=== PATIENT | male | born 1965 | race Caucasian/White ===

== ENCOUNTER 2016-12-29 20:24 | Inpatient (IN) ==
[2016-12-29 21:27] LABS: Basophils # 0.1 K/mcL (0.0-0.2); Basophils % 0.9 %; Eosinophils # 0.1 K/mcL (0.0-0.6); Eosinophils % 1.7 %; Hematocrit 38.8 % (37.5-50.1); Hemoglobin 13.4 g/dL (12.9-16.9); Immature Granulocytes % 0.4 % (0-4); Lymphocytes # 3.2 K/mcL (0.6-4.6); Lymphocytes % 40.2 %; Mean Corpuscular HGB Conc 34.5 g/dL (31.6-35.5); Mean Corpuscular Hemoglobin 31.7 pg (28.0-33.3); Mean Corpuscular Volume 91.7 fL (83.0-100.0); Mean Platelet Volume 9.5 fL (9.4-12.4); Monocytes # 0.9 K/mcL (0.0-1.3); Monocytes % 11.1 %; Neutrophils # 3.6 K/mcL (1.6-8.9); Platelet Count 328 K/mcL (140-400); Red Blood Count 4.23 M/mcL (4.19-5.50); Red Cell Distribution Width 12.1 % (11.5-14.5); Segmented Neutrophils % 45.7 %
[2016-12-29 21:37] LABS: BUN/Creatinine Ratio 12 (6-26); Blood Urea Nitrogen 13 mg/dL (8-26); Calcium 9.5 mg/dL (8.6-10.8); Carbon Dioxide 22 mEq/L (19-29); Chloride 106 mEq/L (98-109); Glucose 102 mg/dL (70-99); Osmolality,Calculated 290 (280-300); Potassium 3.6 mEq/L (3.5-4.5); Sodium 140 mEq/L (136-145); eGFR For African Americans > 60 (> 60); eGFR For Non-African Americans > 60 (> 60)
[2016-12-29 21:38] LABS: Acetaminophen < 1.0 mcg/mL (10-30); Ethanol < 10 mg/dL (0-10); Salicylate < 5.0 mg/dL (15-30)
--- NOTE | 2016-12-29 21:49 | Emergency Department Note ---
Disposition Clinical Impression: Suicidal ideation Disposition: Still a Patient Referrals: NO,PCP [Primary Care Provider] - Forms: ED Satisfaction Letter Psych HPI - General Chief Complaint: ED Psychiatric Symptoms Stated Complaint: si Time Seen by Provider: 12/29/16 20:55 Source: patient Nursing Notes Reviewed: Yes Vital Signs Reviewed: Yes - History of Present Illness HPI Narrative: Mr. Saxena, a 51yo male, presents from home via EMS with CC: suicidal ideation. Onset 2-3 weeks. He has several plans in mind. What prevented him from carrying it out was thoughts of his 21yo daughter. Patient has a history of 3 previous suicide attempts. Was previously admitted to and was told, if he had additional suicidal ideations, to present to the ED. Denies recent self harm to include ingestion. Daily medications include mertazipine and clonazepam. Has not been to his therapist in some time; reason he quit: he felt good enough he didn't think he needed to go any more. Habits: admits to remote THC use, denies other illicit substances. - Related Data Previous Rx's Medication Instructions Recorded ClonazePAM [Klonopin] 1 mg PO TID 30 Days 02/04/16 Omeprazole [PriLOSEC] 40 mg PO DAILY 30 Days 02/04/16 ClonazePAM [Klonopin] 1 mg PO TID PRN #0 tablet 07/15/16 Quetiapine Fumarate [SEROquel] 100 mg PO HS #30 tablet 07/22/16 Allergies Allergy/AdvReac Type Severity Reaction Status Date / Time Penicillins Allergy Anaphylaxis Verified 12/29/16 20:43 All systems ED: reviewed and negative except as stated. Constitutional: Denies: fever, chills Cardiovascular: Denies: chest pain, palpitations Respiratory: Denies: cough, dyspnea, wheezes Gastrointestinal: Denies: abdominal pain, nausea, vomiting, diarrhea, constipation Genitourinary: Denies: urgency, dysuria Musculoskeletal: Denies: back pain, neck pain Psychiatric: Reports: depression, suicidal thoughts. Denies: homicidal thoughts Past Medical History - Past Medical History Medical history: Reports: arthritis, GERD, seizures Psychiatric history: Reports: anxiety, depression, PTSD, prior suicide attempt, previous psychiatric hospitalization, other - Social History Smoking Status: Former smoker Smokeless Tobacco Status: No Alcohol use: Reports: none Drug use: Reports: cocaine, opiates, marijuana, other Physical Exam General: Patient is alert, oriented, and in no acute distress. HEENT: No facial asymmetry. Head is normocephalic and atraumatic. PERRLA. Trachea midline. Cardiovascular: Heart regular rate and rhythm without clicks, rubs, gallops, or murmurs. No JVD. Respiratory: Symmetric chest rise with good respiratory effort. Bilateral breath sounds are clear without wheezing, crackles, or rhonchi. Abdomen: Bowel sounds present normoactive x-4 quadrants. Abdomen is soft, nondistended, and nontender. No organomegaly noted. Musculoskeletal: Spontaneously moving all extremities. Neuro: Cranial nerves II through XII grossly intact. Psych: Patient's affect is flat. - General Limitations: no limitations General appearance: alert, in no apparent distress Course Course Narrative: Will medically clear for 1A evaluation. 22:36 Patient's lab work is remarkable only for positive urine THC. Physical exam is unremarkable. He is medically cleared at this time. Will consult 1A. Vital Signs Temperature 98.7 F 12/29/16 20:44 Pulse Rate 75 12/29/16 20:44 Respiratory Rate 16 12/29/16 20:44 Blood Pressure 148/90 12/29/16 20:44 O2 Sat by Pulse Oximetry 97 12/29/16 20:44 Temperature 98.7 F 12/29/16 20:44 Pulse Rate 75 12/29/16 20:44 Respiratory Rate 16 12/29/16 20:44 Blood Pressure 148/90 12/29/16 20:44 O2 Sat by Pulse Oximetry 97 12/29/16 20:44 Oxygen Delivery Oxygen Delivery Room Air Psych - Lab Data Result diagrams: 12/29/16 21:18 12/29/16 21:18 Lab Results 12/29/16 12/29/16 12/29/16 Range/Units 21:18 21:18 22:20 WBC 7.8 (4.3-11.1) K/mcL RBC 4.23 (4.19-5.50) M/mcL Hgb 13.4 (12.9-16.9) g/dL Hct 38.8 (37.5-50.1) % MCV 91.7 (83.0-100.0) fL MCH 31.7 (28.0-33.3) pg MCHC 34.5 (31.6-35.5) g/dL RDW 12.1 (11.5-14.5) % Plt Count 328 (140-400) K/mcL MPV 9.5 (9.4-12.4) fL Immature Gran % 0.4 (0-4) % Seg Neutrophils % 45.7 % Lymphocytes % 40.2 % Monocytes % 11.1 % Eosinophils % 1.7 % Basophils % 0.9 % Neutrophils # 3.6 (1.6-8.9) K/mcL Lymphocytes # 3.2 (0.6-4.6) K/mcL Monocytes # 0.9 (0.0-1.3) K/mcL Eosinophils # 0.1 (0.0-0.6) K/mcL Basophils # 0.1 (0.0-0.2) K/mcL Sodium 140 (136-145) mEq/L Potassium 3.6 (3.5-4.5) mEq/L Chloride 106 (98-109) mEq/L Carbon Dioxide 22 (19-29) mEq/L BUN 13 (8-26) mg/dL Creatinine 1.09 (0.72-1.25) mg/dL Est GFR ( Amer) > 60 (> 60) Est GFR (Non-Af Amer) > 60 (> 60) BUN/Creatinine Ratio 12 (6-26) Glucose 102 H (70-99) mg/dL Calculated Osmolality 290 (280-300) Calcium 9.5 (8.6-10.8) mg/dL Urine Color Yellow (Yellow) Urine Clarity Clear (Clear) Urine pH 6.0 (5.0-8.0) pH Units Ur Specific [place] 1.025 (1.010-1.025) Urine Protein Negative (Neg-Trace) mg/dL Urine Glucose (UA) Normal (Normal) mg/dL Urine Ketones Negative (Negative) mg/dL Urine Blood Negative (Negative) Urine Nitrite Negative (Negative) Urine Bilirubin Negative (Negative) Urine Urobilinogen Normal (Normal) mg/dL Ur Leukocyte Esterase Negative (Negative) Salicylates < 5.0 L (15-30) mg/dL Urine Opiates Screen (Eftout=582) ng/mL Acetaminophen < 1.0 L (10-30) mcg/mL Ur Barbiturates Screen (Pzdyml=987) ng/mL Ur Phencyclidine Scrn (Cutoff=25) ng/mL Ur Amphetamines Screen (Mpolqi=7042) ng/mL U Benzodiazepines Scrn (Oebjox=806) ng/mL Urine Cocaine Screen (Cutoff= 300) ng/mL U Marijuana (THC) Screen (Cutoff = 50) ng/mL Ethyl Alcohol < 10 (0-10) mg/dL 12/29/16 Range/Units 22:20 WBC (4.3-11.1) K/mcL RBC (4.19-5.50) M/mcL Hgb (12.9-16.9) g/dL Hct (37.5-50.1) % MCV (83.0-100.0) fL MCH (28.0-33.3) pg MCHC (31.6-35.5) g/dL RDW (11.5-14.5) % Plt Count (140-400) K/mcL MPV (9.4-12.4) fL Immature Gran % (0-4) % Seg Neutrophils % % Lymphocytes % % Monocytes % % Eosinophils % % Basophils % % Neutrophils # (1.6-8.9) K/mcL Lymphocytes # (0.6-4.6) K/mcL Monocytes # (0.0-1.3) K/mcL Eosinophils # (0.0-0.6) K/mcL Basophils # (0.0-0.2) K/mcL Sodium (136-145) mEq/L Potassium (3.5-4.5) mEq/L Chloride (98-109) mEq/L Carbon Dioxide (19-29) mEq/L BUN (8-26) mg/dL Creatinine (0.72-1.25) mg/dL Est GFR ( Amer) (> 60) Est GFR (Non-Af Amer) (> 60) BUN/Creatinine Ratio (6-26) Glucose (70-99) mg/dL Calculated Osmolality (280-300) Calcium (8.6-10.8) mg/dL Urine Color (Yellow) Urine Clarity (Clear) Urine pH (5.0-8.0) pH Units Ur Specific [place] (1.010-1.025) Urine Protein (Neg-Trace) mg/dL Urine Glucose (UA) (Normal) mg/dL Urine Ketones (Negative) mg/dL Urine Blood (Negative) Urine Nitrite (Negative) Urine Bilirubin (Negative) Urine Urobilinogen (Normal) mg/dL Ur Leukocyte Esterase (Negative) Salicylates (15-30) mg/dL Urine Opiates Screen Negative (Poroia=994) ng/mL Acetaminophen (10-30) mcg/mL Ur Barbiturates Screen Negative (Czsglk=539) ng/mL Ur Phencyclidine Scrn Negative (Cutoff=25) ng/mL Ur Amphetamines Screen Negative (Remofe=5528) ng/mL U Benzodiazepines Scrn Negative (Elebaz=671) ng/mL Urine Cocaine Screen Negative (Cutoff= 300) ng/mL U Marijuana (THC) Screen Positive H (Cutoff = 50) ng/mL Ethyl Alcohol (0-10) mg/dL - EKG Data EKG attestation: Yes I reviewed and interpreted this EKG. EKG results narrative: EKG dated 29 Dec 2016 at 22:33 interpreted as normal sinus rhythm with rate of 64. Normal intervals. Normal axis. Non-specific STT changes. No previous EKG for comparison. Psychiatric Medical Clearance - Medical Clearance Checklist Medical History: No Social History Section defined Current Vitals: Last Vital Signs Temp 98.7 F 12/29/16 20:44 Pulse 75 12/29/16 20:44 Resp 16 12/29/16 20:44 BP 148/90 12/29/16 20:44 Pulse Ox 97 12/29/16 20:44 Psychiatric Lab Panel: Drug Levels and Toxicity 12/29/16 12/29/16 21:18 22:20 Urine Opiates Screen Negative Acetaminophen < 1.0 L Ur Barbiturates Screen Negative Ur Phencyclidine Scrn Negative Ur Amphetamines Screen Negative U Benzodiazepines Scrn Negative Urine Cocaine Screen Negative U Marijuana (THC) Screen Positive H Ethyl Alcohol < 10 Abnormal Labs: Abnormal lab results Glucose 102 mg/dL (70-99) H 12/29/16 21:18 Salicylates < 5.0 mg/dL (15-30) L 12/29/16 21:18 Acetaminophen < 1.0 mcg/mL (10-30) L 12/29/16 21:18 U Marijuana (THC) Screen Positive ng/mL (Cutoff = 50) H 12/29/16 22:20 Statement of Medical Clearance: I have evaluated the patient, reviewed diagnostic information, and certify that the patient's medical condition is sufficiently stable that transfer to the psychiatric unit does not pose a significant risk of deterioration.
--- NOTE | 2016-12-29 22:20 | Emergency Department Note ---
Disposition Clinical Impression: Suicidal ideation Disposition: Admitted As Inpatient Condition: Good Referrals: NO,PCP [Primary Care Provider] - Forms: ED Satisfaction Letter General Adult HPI - General Chief complaint: ED Psychiatric Symptoms Stated complaint: si Time Seen by Provider: 12/29/16 20:55 Source: patient Limitations: no limitations - History of Present Illness Pain Scale: 0 - Related Data Previous Rx's Medication Instructions Recorded ClonazePAM [Klonopin] 1 mg PO TID 30 Days 02/04/16 Omeprazole [PriLOSEC] 40 mg PO DAILY 30 Days 02/04/16 ClonazePAM [Klonopin] 1 mg PO TID PRN #0 tablet 07/15/16 Quetiapine Fumarate [SEROquel] 100 mg PO HS #30 tablet 07/22/16 Allergies Allergy/AdvReac Type Severity Reaction Status Date / Time Penicillins Allergy Anaphylaxis Verified 12/29/16 20:43 Constitutional: Denies: fever, chills Cardiovascular: Denies: chest pain, palpitations Respiratory: Denies: cough, dyspnea, wheezes Gastrointestinal: Denies: abdominal pain, nausea, vomiting, diarrhea, constipation Genitourinary: Denies: urgency, dysuria Musculoskeletal: Denies: back pain, neck pain Psychiatric: Reports: depression, suicidal thoughts. Denies: homicidal thoughts Past Medical History - Past Medical History Medical history: Reports: arthritis, GERD, seizures Psychiatric history: Reports: anxiety, depression, PTSD, prior suicide attempt, previous psychiatric hospitalization, other - Social History Smoking Status: Former smoker Smokeless Tobacco Status: No Alcohol use: Reports: none Drug use: Reports: cocaine, opiates, marijuana, other Physical Exam - General Limitations: no limitations General appearance: alert, in no apparent distress Course - Reevaluation(s) Reevaluation #1: I saw the patient with the resident, Dr. Vidales. Patient presents with depression and suicidal ideations. Patient registers no medical complaints at this time. Physical examination is unremarkable. We will do the lab screening examination as well. If those are negative he will be medically cleared and we will consult psychiatry for evaluation. Patient is calm and cooperative at this time. Time: 22:19 Vital Signs Temperature 98.7 F 12/29/16 20:44 Pulse Rate 75 12/29/16 20:44 Respiratory Rate 16 12/29/16 20:44 Blood Pressure 148/90 12/29/16 20:44 O2 Sat by Pulse Oximetry 97 12/29/16 20:44 Temperature 98.7 F 12/29/16 20:44 Pulse Rate 75 12/29/16 20:44 Respiratory Rate 16 12/29/16 20:44 Blood Pressure 148/90 12/29/16 20:44 O2 Sat by Pulse Oximetry 97 12/29/16 20:44 Oxygen Delivery Oxygen Delivery Room Air Medical Decision Making - Lab Data Result diagrams: 12/29/16 21:18 12/29/16 21:18 Lab Results 12/29/16 12/29/16 12/29/16 Range/Units 21:18 21:18 22:20 WBC 7.8 (4.3-11.1) K/mcL RBC 4.23 (4.19-5.50) M/mcL Hgb 13.4 (12.9-16.9) g/dL Hct 38.8 (37.5-50.1) % MCV 91.7 (83.0-100.0) fL MCH 31.7 (28.0-33.3) pg MCHC 34.5 (31.6-35.5) g/dL RDW 12.1 (11.5-14.5) % Plt Count 328 (140-400) K/mcL MPV 9.5 (9.4-12.4) fL Immature Gran % 0.4 (0-4) % Seg Neutrophils % 45.7 % Lymphocytes % 40.2 % Monocytes % 11.1 % Eosinophils % 1.7 % Basophils % 0.9 % Neutrophils # 3.6 (1.6-8.9) K/mcL Lymphocytes # 3.2 (0.6-4.6) K/mcL Monocytes # 0.9 (0.0-1.3) K/mcL Eosinophils # 0.1 (0.0-0.6) K/mcL Basophils # 0.1 (0.0-0.2) K/mcL Sodium 140 (136-145) mEq/L Potassium 3.6 (3.5-4.5) mEq/L Chloride 106 (98-109) mEq/L Carbon Dioxide 22 (19-29) mEq/L BUN 13 (8-26) mg/dL Creatinine 1.09 (0.72-1.25) mg/dL Est GFR ( Amer) > 60 (> 60) Est GFR (Non-Af Amer) > 60 (> 60) BUN/Creatinine Ratio 12 (6-26) Glucose 102 H (70-99) mg/dL Calculated Osmolality 290 (280-300) Calcium 9.5 (8.6-10.8) mg/dL Urine Color Yellow (Yellow) Urine Clarity Clear (Clear) Urine pH 6.0 (5.0-8.0) pH Units Ur Specific [place] 1.025 (1.010-1.025) Urine Protein Negative (Neg-Trace) mg/dL Urine Glucose (UA) Normal (Normal) mg/dL Urine Ketones Negative (Negative) mg/dL Urine Blood Negative (Negative) Urine Nitrite Negative (Negative) Urine Bilirubin Negative (Negative) Urine Urobilinogen Normal (Normal) mg/dL Ur Leukocyte Esterase Negative (Negative) Salicylates < 5.0 L (15-30) mg/dL Urine Opiates Screen (Grgzet=680) ng/mL Acetaminophen < 1.0 L (10-30) mcg/mL Ur Barbiturates Screen (Vdhwcw=787) ng/mL Ur Phencyclidine Scrn (Cutoff=25) ng/mL Ur Amphetamines Screen (Rmsjez=7996) ng/mL U Benzodiazepines Scrn (Vvwjxa=841) ng/mL Urine Cocaine Screen (Cutoff= 300) ng/mL U Marijuana (THC) Screen (Cutoff = 50) ng/mL Ethyl Alcohol < 10 (0-10) mg/dL 12/29/16 Range/Units 22:20 WBC (4.3-11.1) K/mcL RBC (4.19-5.50) M/mcL Hgb (12.9-16.9) g/dL Hct (37.5-50.1) % MCV (83.0-100.0) fL MCH (28.0-33.3) pg MCHC (31.6-35.5) g/dL RDW (11.5-14.5) % Plt Count (140-400) K/mcL MPV (9.4-12.4) fL Immature Gran % (0-4) % Seg Neutrophils % % Lymphocytes % % Monocytes % % Eosinophils % % Basophils % % Neutrophils # (1.6-8.9) K/mcL Lymphocytes # (0.6-4.6) K/mcL Monocytes # (0.0-1.3) K/mcL Eosinophils # (0.0-0.6) K/mcL Basophils # (0.0-0.2) K/mcL Sodium (136-145) mEq/L Potassium (3.5-4.5) mEq/L Chloride (98-109) mEq/L Carbon Dioxide (19-29) mEq/L BUN (8-26) mg/dL Creatinine (0.72-1.25) mg/dL Est GFR ( Amer) (> 60) Est GFR (Non-Af Amer) (> 60) BUN/Creatinine Ratio (6-26) Glucose (70-99) mg/dL Calculated Osmolality (280-300) Calcium (8.6-10.8) mg/dL Urine Color (Yellow) Urine Clarity (Clear) Urine pH (5.0-8.0) pH Units Ur Specific [place] (1.010-1.025) Urine Protein (Neg-Trace) mg/dL Urine Glucose (UA) (Normal) mg/dL Urine Ketones (Negative) mg/dL Urine Blood (Negative) Urine Nitrite (Negative) Urine Bilirubin (Negative) Urine Urobilinogen (Normal) mg/dL Ur Leukocyte Esterase (Negative) Salicylates (15-30) mg/dL Urine Opiates Screen Negative (Xsyadp=600) ng/mL Acetaminophen (10-30) mcg/mL Ur Barbiturates Screen Negative (Jmsvds=944) ng/mL Ur Phencyclidine Scrn Negative (Cutoff=25) ng/mL Ur Amphetamines Screen Negative (Sifudb=4214) ng/mL U Benzodiazepines Scrn Negative (Tshpqw=993) ng/mL Urine Cocaine Screen Negative (Cutoff= 300) ng/mL U Marijuana (THC) Screen Positive H (Cutoff = 50) ng/mL Ethyl Alcohol (0-10) mg/dL Attestation Statement - Attestation Attestation: I, Dr. Barbour, examined this patient [id number] and my medical decision- making was reviewed with Dr. Nesbitt, Resident Physician. I agree with the documented findings, disposition and treatment plan as described except to the extent set forth below. Please see my progress notes for details. Dr Bosch note: Pt seen by 1 A psych nurse and felt appropriate for psych admission; medically stable @ time of my evaluation and left the ER for 1 a floor; Admitted to Dr Field; Please see prior charting by resident Dr Nesbitt and attending Dr. Barbour;
[2016-12-29 22:29] LABS: Bilirubin,Urine Negative (Negative); Blood,Urine Negative (Negative); Clarity,Urine Clear (Clear); Color,Urine Yellow (Yellow); Glucose,Urine (UA) Normal (Normal); Ketones,Urine Negative (Negative); Leukocyte Esterase,Urine Negative (Negative); Nitrite,Urine Negative (Negative); Protein,Urine Negative (Neg-Trace); Specific Gravity,Urine 1.025 (1.010-1.025); Urobilinogen,Urine Normal (Normal)
[2016-12-29 22:35] LABS: Amphetamine Screen,Urine Negative ng/mL (Cutoff=1000); Barbiturate Screen,Urine Negative ng/mL (Cutoff=200); Benzodiazepines Screen,Urine Negative ng/mL (Cutoff=200); Cannabinoid Screen,Urine Positive ng/mL (Cutoff = 50); Cocaine Screen,Urine Negative ng/mL (Cutoff= 300); Opiate Screen,Urine Negative ng/mL (Cutoff=300); Phencyclidine Screen,Urine Negative ng/mL (Cutoff=25)
--- NOTE | 2016-12-30 01:15 | Emergency Department Note ---
Disposition Clinical Impression: Suicidal ideation Disposition: Admitted As Inpatient Condition: Good Time of Disposition: 04:31 Psych HPI - General Chief Complaint: ED Psychiatric Symptoms Stated Complaint: si Time Seen by Provider: 12/29/16 20:55 Source: patient Nursing Notes Reviewed: Yes Vital Signs Reviewed: Yes - History of Present Illness HPI Narrative: Patient was a signout from the day team, Dr. Nesbitt and Dr. Barbour. Please see their notes for further detail. Patient is a 51-year-old male who presented with suicidal ideation with several plans. He has a history of previous suicide attempts and has been admitted to the psychiatry here in the past. Patient was medically cleared by day team. On my reassessment, patient continued to have no complaints of chest pain, shortness breath, nausea, vomiting, fevers, abdominal pain, change in bowel or bladder habits. No ingestion or self-harm. - Related Data Home Medications Medication Instructions Recorded Confirmed Mirtazapine [Remeron] 15 mg PO HS 12/30/16 12/30/16 Previous Rx's Medication Instructions Recorded ClonazePAM [Klonopin] 1 mg PO TID 30 Days 02/04/16 Omeprazole [PriLOSEC] 40 mg PO DAILY 30 Days 02/04/16 ClonazePAM [Klonopin] 1 mg PO TID PRN #0 tablet 07/15/16 Quetiapine Fumarate [SEROquel] 100 mg PO HS #30 tablet 07/22/16 Allergies Allergy/AdvReac Type Severity Reaction Status Date / Time Penicillins Allergy Anaphylaxis Verified 12/29/16 20:43 All systems ED: reviewed and negative except as stated. Constitutional: Denies: fever, chills Cardiovascular: Denies: chest pain, palpitations Respiratory: Denies: cough, dyspnea, wheezes Gastrointestinal: Denies: abdominal pain, nausea, vomiting, diarrhea, constipation Genitourinary: Denies: urgency, dysuria Musculoskeletal: Denies: back pain, neck pain Psychiatric: Reports: depression, suicidal thoughts. Denies: homicidal thoughts Past Medical History - Past Medical History Attestation: Yes The following information was validated with the patient. Medical history: Reports: arthritis, GERD, seizures Psychiatric history: Reports: anxiety, depression, PTSD, prior suicide attempt, previous psychiatric hospitalization, other - Social History Smoking Status: Former smoker Smokeless Tobacco Status: No Alcohol use: Reports: none Drug use: Reports: cocaine, opiates, marijuana, other Physical Exam - General Limitations: no limitations General appearance: alert, in no apparent distress - Head Head exam: atraumatic, normocephalic, normal inspection - Eye Eye exam: Present: normal appearance, PERRL, EOMI - ENT ENT exam: normal exam, normal oropharynx, mucous membranes moist - Neck Neck exam: Present: normal inspection, full ROM, trachea midline - Chest Chest inspection: Present: normal inspection, symmetric chest wall rise - Respiratory Respiratory exam: Present: normal lung sounds bilaterally - Cardiovascular Cardiovascular exam: Present: regular rate, normal rhythm, normal heart sounds - Abdominal Exam Abdominal exam: Present: soft, Non-Tender. Absent: tenderness, distention, guarding, rebound, rigidity - Extremities Exam Extremities exam: Present: normal inspection, full ROM. Absent: tenderness, pedal edema - Neurological Exam Neurological exam: Present: alert, oriented X3 - Psychiatric Psychiatric exam: Present: normal affect, depressed - Skin Skin exam: Present: warm, dry, intact, normal color Course Course Narrative: Vitals within normal limits on my exam. Patient was seen and evaluated by 1A who recommended admission to for further care. Patient stable prior to admission. Vital Signs Temperature 98.7 F 12/29/16 20:44 Pulse Rate 75 12/29/16 20:44 Respiratory Rate 16 12/29/16 20:44 Blood Pressure 148/90 12/29/16 20:44 O2 Sat by Pulse Oximetry 97 12/29/16 20:44 Temperature 98.1 F 12/30/16 02:05 Pulse Rate 67 12/30/16 02:05 Respiratory Rate 16 12/30/16 02:05 Blood Pressure 147/90 12/30/16 02:05 O2 Sat by Pulse Oximetry 97 12/29/16 20:44 Oxygen Delivery Oxygen Delivery Room Air Psych - MDM Narrative Medical decision making narrative: Vitals within normal limits on my exam. Patient was seen and evaluated by 1A who recommended admission to for further care. Patient stable prior to admission. - Lab Data Result diagrams: 12/29/16 21:18 12/29/16 21:18 Lab Results 12/29/16 12/29/16 12/29/16 Range/Units 21:18 21:18 22:20 WBC 7.8 (4.3-11.1) K/mcL RBC 4.23 (4.19-5.50) M/mcL Hgb 13.4 (12.9-16.9) g/dL Hct 38.8 (37.5-50.1) % MCV 91.7 (83.0-100.0) fL MCH 31.7 (28.0-33.3) pg MCHC 34.5 (31.6-35.5) g/dL RDW 12.1 (11.5-14.5) % Plt Count 328 (140-400) K/mcL MPV 9.5 (9.4-12.4) fL Immature Gran % 0.4 (0-4) % Seg Neutrophils % 45.7 % Lymphocytes % 40.2 % Monocytes % 11.1 % Eosinophils % 1.7 % Basophils % 0.9 % Neutrophils # 3.6 (1.6-8.9) K/mcL Lymphocytes # 3.2 (0.6-4.6) K/mcL Monocytes # 0.9 (0.0-1.3) K/mcL Eosinophils # 0.1 (0.0-0.6) K/mcL Basophils # 0.1 (0.0-0.2) K/mcL Sodium 140 (136-145) mEq/L Potassium 3.6 (3.5-4.5) mEq/L Chloride 106 (98-109) mEq/L Carbon Dioxide 22 (19-29) mEq/L BUN 13 (8-26) mg/dL Creatinine 1.09 (0.72-1.25) mg/dL Est GFR ( Amer) > 60 (> 60) Est GFR (Non-Af Amer) > 60 (> 60) BUN/Creatinine Ratio 12 (6-26) Glucose 102 H (70-99) mg/dL Calculated Osmolality 290 (280-300) Calcium 9.5 (8.6-10.8) mg/dL Urine Color Yellow (Yellow) Urine Clarity Clear (Clear) Urine pH 6.0 (5.0-8.0) pH Units Ur Specific [place] 1.025 (1.010-1.025) Urine Protein Negative (Neg-Trace) mg/dL Urine Glucose (UA) Normal (Normal) mg/dL Urine Ketones Negative (Negative) mg/dL Urine Blood Negative (Negative) Urine Nitrite Negative (Negative) Urine Bilirubin Negative (Negative) Urine Urobilinogen Normal (Normal) mg/dL Ur Leukocyte Esterase Negative (Negative) Salicylates < 5.0 L (15-30) mg/dL Urine Opiates Screen (Pzqbff=267) ng/mL Acetaminophen < 1.0 L (10-30) mcg/mL Ur Barbiturates Screen (Xjuzng=042) ng/mL Ur Phencyclidine Scrn (Cutoff=25) ng/mL Ur Amphetamines Screen (Mixuob=8540) ng/mL U Benzodiazepines Scrn (Wuswph=917) ng/mL Urine Cocaine Screen (Cutoff= 300) ng/mL U Marijuana (THC) Screen (Cutoff = 50) ng/mL Ethyl Alcohol < 10 (0-10) mg/dL 12/29/16 Range/Units 22:20 WBC (4.3-11.1) K/mcL RBC (4.19-5.50) M/mcL Hgb (12.9-16.9) g/dL Hct (37.5-50.1) % MCV (83.0-100.0) fL MCH (28.0-33.3) pg MCHC (31.6-35.5) g/dL RDW (11.5-14.5) % Plt Count (140-400) K/mcL MPV (9.4-12.4) fL Immature Gran % (0-4) % Seg Neutrophils % % Lymphocytes % % Monocytes % % Eosinophils % % Basophils % % Neutrophils # (1.6-8.9) K/mcL Lymphocytes # (0.6-4.6) K/mcL Monocytes # (0.0-1.3) K/mcL Eosinophils # (0.0-0.6) K/mcL Basophils # (0.0-0.2) K/mcL Sodium (136-145) mEq/L Potassium (3.5-4.5) mEq/L Chloride (98-109) mEq/L Carbon Dioxide (19-29) mEq/L BUN (8-26) mg/dL Creatinine (0.72-1.25) mg/dL Est GFR ( Amer) (> 60) Est GFR (Non-Af Amer) (> 60) BUN/Creatinine Ratio (6-26) Glucose (70-99) mg/dL Calculated Osmolality (280-300) Calcium (8.6-10.8) mg/dL Urine Color (Yellow) Urine Clarity (Clear) Urine pH (5.0-8.0) pH Units Ur Specific [place] (1.010-1.025) Urine Protein (Neg-Trace) mg/dL Urine Glucose (UA) (Normal) mg/dL Urine Ketones (Negative) mg/dL Urine Blood (Negative) Urine Nitrite (Negative) Urine Bilirubin (Negative) Urine Urobilinogen (Normal) mg/dL Ur Leukocyte Esterase (Negative) Salicylates (15-30) mg/dL Urine Opiates Screen Negative (Fxkbiv=919) ng/mL Acetaminophen (10-30) mcg/mL Ur Barbiturates Screen Negative (Dabusi=948) ng/mL Ur Phencyclidine Scrn Negative (Cutoff=25) ng/mL Ur Amphetamines Screen Negative (Uirxra=1947) ng/mL U Benzodiazepines Scrn Negative (Jaqqyr=778) ng/mL Urine Cocaine Screen Negative (Cutoff= 300) ng/mL U Marijuana (THC) Screen Positive H (Cutoff = 50) ng/mL Ethyl Alcohol (0-10) mg/dL Psychiatric Medical Clearance - Medical Clearance Checklist Does the patient have a NEW psychiatric condition?: No Any abnormalities indicating possible medical illness?: No Any history of medical issues?: No Medical History: No Social History Section defined Any abnormal vital signs prior to transfer?: No Current Vitals: Last Vital Signs Temp 98.1 F 12/30/16 02:05 Pulse 67 12/30/16 02:05 Resp 16 12/30/16 02:05 BP 147/90 12/30/16 02:05 Pulse Ox 97 12/29/16 20:44 Is the patient intoxicated or cognitively impaired?: No Psychiatric Lab Panel: Drug Levels and Toxicity 12/29/16 12/29/16 21:18 22:20 Urine Opiates Screen Negative Acetaminophen < 1.0 L Ur Barbiturates Screen Negative Ur Phencyclidine Scrn Negative Ur Amphetamines Screen Negative U Benzodiazepines Scrn Negative Urine Cocaine Screen Negative U Marijuana (THC) Screen Positive H Ethyl Alcohol < 10 Any abnormalities on the physical exam?: No Any abnormal labs?: No Abnormal Labs: Abnormal lab results Glucose 102 mg/dL (70-99) H 12/29/16 21:18 Salicylates < 5.0 mg/dL (15-30) L 12/29/16 21:18 Acetaminophen < 1.0 mcg/mL (10-30) L 12/29/16 21:18 U Marijuana (THC) Screen Positive ng/mL (Cutoff = 50) H 12/29/16 22:20 Does the patient require durable medical equiptment?: No Is the patient ambulatory?: Yes Is the patient a fall risk?: No Has the patient been medically cleared?: Yes Any acute medical condition require Tx prior to transfer?: No Attestation Statement - Attestation Attestation: Dr. Bosch note: Patient seen in conjunction with resident Dr. Barrios; please see his chart for complete documentation. I spent [id number] time with the patient and I agree with the patient's treatment and disposition. Medically stable for psych eval / admission at the time of ER depature
[2016-12-30] MEDS ORDERED: hydrOXYzine pamoate 25 MG CAPSULE PO PRN (01:52)
[2016-12-30] MEDS ORDERED: Mag Hydrox/Al Hydrox/Simeth 30 ML UDC PO PRN (01:52)
[2016-12-30] MEDS ORDERED: Haloperidol Lactate 5 MG/ML VIAL IM PRN (01:52)
[2016-12-30] MEDS ORDERED: *HR* LORazepam 1 MG TABLET PO PRN (01:52)
[2016-12-30] MEDS ORDERED: Acetaminophen 325 MG TABLET PO PRN (01:52)
[2016-12-30] MEDS ORDERED: *HR* LORazepam 2 MG/ML VIAL IM PRN (01:52)
[2016-12-30] MEDS ORDERED: MOM Conc 10 ML UD.LIQ PO PRN (01:52)
[2016-12-30] MEDS: clonazePAM 1 MG TABLET PO PRN ×3 (02:09→21:05)
[2016-12-30] MEDS: Mirtazapine 15 MG TABLET PO SCH ×2 (02:09→21:06)
--- NOTE | 2016-12-30 14:31 | Psychiatry History & Physical ---
Date of Encounter: 12/30/16 Time of Encounter: 13:50 History of Present Illness Patient Stated Chief Complaint: "Still feelin' suicidal." Medicare Admission Attestation: For traditional Medicare patients the provided hospital inpatient services are reasonable and necessary and in the case of services not specified as inpatient -only under 42 CFR 419.22 (n), that they are appropriately provided as inpatient services in accordance 42 CFR 412.3. For Critical Access Hospital the patient may reasonably be expected to be discharged or transferred to a hospital within 96 hours after admission to the Critical Access Hospital. Admitted From: Emergency Dept Plans for Post Hospital Care: Home History of Present Illness: Mr. Saxena is a 51 year old male who was admitted from the emergency department after stating that he was suicidal. When I asked him how he was today he stated "probably about the same as I was when I came in; suicidal, depressed and hopeless about some life circumstances". I asked him if he had ever attempted suicide in the past and he told me no. Patient was here approximately 6 months ago on a similar admission. He told me that he was not taking his Remeron consistently and taking it as a PRN basis when he needed sleep as opposed to routinely for treating his depression. He also states that is taking Klonopin 1 mg 2 to 3 times a day for his anxiety, which is been taken for the past year or more. He states the Klonopin keeps his anxiety down keeps him from killing himself. He reports that he feels hopeless and helpless about life, as low-energy, does not like to do things he used to like to do, feels tired all the time, has a decreased appetite. He denies any issues with gambling or impulsivity, he denies any auditory or visual hallucinations, paranoia or mind reading. He denies homicidal ideation. He tells me that he felt safe on the unit last night and finally fell asleep about 2 or 3 o'clock in the morning after he was admitted. He hasn't slept well for days. He states that he has no plans to hurt himself on the unit. When I asked him what his stresses are in life that are causing him to be depressed, he tells me that he recently found out from his estranged that "she is cheating on me". He states that she told him this past Thursday night that she was going to file for divorce, having found somebody new in her life. He currently lives in the basement of their house since August and he states that they have not lived as and for long time. He does not know that he wants to remain to her, but the fact that she has found another man is upsetting to him. He states his relationship with his and his daughter have been strained for a longtime secondary to them being [employer] and him not. He states that his daughter does not talk to him and has nothing to do with him. She is also getting in April and asked her maternal grandfather to give her away, not have her father. He found this devistating. When I review his history of medications he tells me "I ran the gamut on medications". He endorses having taken all the SSRIs with no good results, and states that the Remeron has worked best for him in the past when he takes it regularly, but again has not been. He states that he cannot go back to the house where he was living in the basement with his and daughter live, finding himself to be homeless. Past Med Surg Social Fam HX - Past Medical History Medical history: arthritis, GERD, seizures - Past Psychiatric History Psychiatric history: Reports: anxiety, depression, previous psychiatric hospitalization Past psychiatric history details: Has completed outpatient therapy at [facility]. Saw a therapist there named He Ty and said he was helpful, but he was hard to get in to see. Family psychiatric history: Yes Family Psychiatric History Details: Father abused substances Family History of Suicide: None - Social History Smoking Status: Former smoker Smokeless Tobacco Status: No Alcohol use: none Drug use: cocaine (hx), opiates (hx), marijuana (Sporadic), other (History of seizures when withdrawing from the Xanax he used to abuse. ) Additional substance use detail: He gets Klonopin 1 mg po bid-tid from Bill [facility] at [facility]. He does not feel he is addicted to them in that he can go days without it and doses not go through any withdraw. 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 Charges ranging form Auto Larceny to drug possessions. - Family History Mother Living Status: Hx Family Endocrine Disorder: Yes Father Living Status: Still Living Medications & Allergies ClonazePAM [Klonopin] 1 mg PO TID 30 Days 02/04/16 [Rx] Omeprazole [PriLOSEC] 40 mg PO DAILY 30 Days 02/04/16 [Rx] ClonazePAM [Klonopin] 1 mg PO TID PRN #0 tablet 07/15/16 [Rx] Quetiapine Fumarate [SEROquel] 100 mg PO HS #30 tablet 07/22/16 [Rx] Mirtazapine [Remeron] 15 mg PO HS 12/30/16 [History] Allergies Penicillins Allergy (Verified 12/29/16 20:43) Anaphylaxis Review of Systems Psychiatric: Reports: depression, anxiety, abnormal sleep pattern, suicidal ideation, change in appetite, anhedonia, change in libido, difficulty concentrating, hopelessness, irritability Mental Status Exam Patient orientation: Yes Person, Yes Time, Yes Place, Yes Circumstance Level of alertness: Alert, Follows commands Patient appearance: Appropriate, Well Groomed Behavior: cooperative Psychomotor activity: Normal Eye contact: Maintains Eye Contact Mood description: Depressed Affect description: flat Speech pattern: Normal rate, Normal rhythm, Normal tone, Appropriate Speech volume: Normal Thought process: Logical, Linear Thought content: Yes Suicidal ideation Attention span: Capable of Focused Attention Memory description: Grossly Intact Patient reliability: Questionable Historian Intelligence estimate: Average Judgment: Fair Insight: Partial Results - Vital Signs Vital signs: Temp Pulse Resp BP Pulse Ox 97.8 F 96 16 125/82 97 12/30/16 09:00 12/30/16 09:00 12/30/16 09:00 12/30/16 09:00 12/29/16 20:44 - Labs Labs: Laboratory Last Values WBC 7.8 K/mcL (4.3-11.1) 12/29/16 21:18 RBC 4.23 M/mcL (4.19-5.50) 12/29/16 21:18 Hgb 13.4 g/dL (12.9-16.9) 12/29/16 21:18 Hct 38.8 % (37.5-50.1) 12/29/16 21:18 MCV 91.7 fL (83.0-100.0) 12/29/16 21:18 MCH 31.7 pg (28.0-33.3) 12/29/16 21:18 MCHC 34.5 g/dL (31.6-35.5) 12/29/16 21:18 RDW 12.1 % (11.5-14.5) 12/29/16 21:18 Plt Count 328 K/mcL (140-400) 12/29/16 21:18 MPV 9.5 fL (9.4-12.4) 12/29/16 21:18 Immature Gran % 0.4 % (0-4) 12/29/16 21:18 Seg Neutrophils % 45.7 % 12/29/16 21:18 Lymphocytes % 40.2 % 12/29/16 21:18 Monocytes % 11.1 % 12/29/16 21:18 Eosinophils % 1.7 % 12/29/16 21:18 Basophils % 0.9 % 12/29/16 21:18 Neutrophils # 3.6 K/mcL (1.6-8.9) 12/29/16 21:18 Lymphocytes # 3.2 K/mcL (0.6-4.6) 12/29/16 21:18 Monocytes # 0.9 K/mcL (0.0-1.3) 12/29/16 21:18 Eosinophils # 0.1 K/mcL (0.0-0.6) 12/29/16 21:18 Basophils # 0.1 K/mcL (0.0-0.2) 12/29/16 21:18 Sodium 140 mEq/L (136-145) 12/29/16 21:18 Potassium 3.6 mEq/L (3.5-4.5) 12/29/16 21:18 Chloride 106 mEq/L (98-109) 12/29/16 21:18 Carbon Dioxide 22 mEq/L (19-29) 12/29/16 21:18 BUN 13 mg/dL (8-26) 12/29/16 21:18 Creatinine 1.09 mg/dL (0.72-1.25) 12/29/16 21:18 Est GFR ( Amer) > 60 (> 60) 12/29/16 21:18 Est GFR (Non-Af Amer) > 60 (> 60) 12/29/16 21:18 BUN/Creatinine Ratio 12 (6-26) 12/29/16 21:18 Glucose 102 mg/dL (70-99) H 12/29/16 21:18 Calculated Osmolality 290 (280-300) 12/29/16 21:18 Calcium 9.5 mg/dL (8.6-10.8) 12/29/16 21:18 Urine Color Yellow (Yellow) 12/29/16 22:20 Urine Clarity Clear (Clear) 12/29/16 22:20 Urine pH 6.0 pH Units (5.0-8.0) 12/29/16 22:20 Ur Specific [place] 1.025 (1.010-1.025) 12/29/16 22:20 Urine Protein Negative mg/dL (Neg-Trace) 12/29/16 22:20 Urine Glucose (UA) Normal mg/dL (Normal) 12/29/16 22:20 Urine Ketones Negative mg/dL (Negative) 12/29/16 22:20 Urine Blood Negative (Negative) 12/29/16 22:20 Urine Nitrite Negative (Negative) 12/29/16 22:20 Urine Bilirubin Negative (Negative) 12/29/16 22:20 Urine Urobilinogen Normal mg/dL (Normal) 12/29/16 22:20 Ur Leukocyte Esterase Negative (Negative) 12/29/16 22:20 Salicylates < 5.0 mg/dL (15-30) L 12/29/16 21:18 Urine Opiates Screen Negative ng/mL (Siygfr=604) 12/29/16 22:20 Acetaminophen < 1.0 mcg/mL (10-30) L 12/29/16 21:18 Ur Barbiturates Screen Negative ng/mL (Kfeaoe=034) 12/29/16 22:20 Ur Phencyclidine Scrn Negative ng/mL (Cutoff=25) 12/29/16 22:20 Ur Amphetamines Screen Negative ng/mL (Qyiocw=3653) 12/29/16 22:20 U Benzodiazepines Scrn Negative ng/mL (Edagoy=794) 12/29/16 22:20 Urine Cocaine Screen Negative ng/mL (Cutoff= 300) 12/29/16 22:20 U Marijuana (THC) Screen Positive ng/mL (Cutoff = 50) H 12/29/16 22:20 Ethyl Alcohol < 10 mg/dL (0-10) 12/29/16 21:18 Assessment and Plan (1) Major depressive disorder, recurrent episode, severe Current visit: No Status: Acute Plan: Admit inpatient for safety and stabilization, Close observation, Suicide Precautions per unit protocol, Encourage participation in unit milieu, Group Therapy, Monitor sleep, Monitor appetite Risks, benefits, side effects, alternatives discussed w/pt: Yes (Resume Remeron 15 mg po q HS) Patient agreeable to treatment: Yes Estimated Length of Stay (Days): 7 Qualifiers: Psychotic features: without psychotic features Qualified Code(s): F33.2 - Major depressive disorder, recurrent severe without psychotic features
--- NOTE | 2016-12-30 21:27 | Electrocardiograph Report ---
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
[2016-12-31] MEDS: clonazePAM 1 MG TABLET PO PRN ×3 (11:21→20:55)
--- NOTE | 2016-12-31 15:18 | Psychiatry Progress Note ---
Date of Encounter: 12/31/16 Time of Encounter: 14:20 Subjective Interval history: I invited the patient to have an interview and to check in for today to see how he was doing. I asked him how he was feeling. He told me "about the same". He denied any homicidal ideation today. He is still having passive suicidal thoughts, no plans. He tells me that he slept 8 to 9 hours last night. When asking about his medications and if taking the Remeron helped, he said 'yes, along with the Klonopin". He continued to talk about the Klonopin and that he did not agree with me potentially decreasing the dose or the discussion I had with him yesterday about the addictive properties of benzodiapzepines, monitoring and responsible prescribing and the substance abuse history he had. He stayed focus on the need for Klonopin and that "you seem hell-bent to take me off when every other doctor knows that I need it and gives it to me." He starts talking about his past history of being prescribed Xanax and other things which he was addicted to and got off, but makes no correlation with my concern over his addiction history and the potential getting addicted to Klonopin. He also was well aware of the OARRS reporting in the [facility] and that there are requirements for physicians. I explained to him that I was not necessarily going to take him off the Klonopin, but was explaining to him my concern about the Klonopin and doing patient education. I asked him if he wanted to talk about his progress and treatment here or if you wanted to talk about the Klonopin? He said, "Well I came out to talk to you didn't I". When asked if he had anything else he wanted to talk about he said, "no, I am fine" and got up and left the room. Review of Systems Psychiatric: Reports: depression, anxiety, abnormal sleep pattern, suicidal ideation, change in appetite, anhedonia, change in libido, difficulty concentrating, hopelessness, irritability Objective: Exam Patient orientation: Yes Person, Yes Time, Yes Place, Yes Circumstance Level of alertness: Alert, Follows commands Patient appearance: Well Groomed Behavior: agitated, aggressive Psychomotor activity: Normal Eye contact: Fleeting Contact Mood description: Angry Speech pattern: Normal rate, Normal rhythm, Normal tone, Appropriate Speech volume: Loud (at times when he started telling me how he did not agree with my thoughts on Klonopin) Thought process: Logical, Linear Thought content: Yes Suicidal ideation Judgment: Fair Insight: Partial Results - Vital Signs Vital Signs: Temp Pulse Resp BP Pulse Ox 98.3 F 70 18 130/82 97 12/31/16 09:00 12/31/16 09:00 12/31/16 09:00 12/31/16 09:00 12/29/16 20:44 Assessment and Plan (1) Major depressive disorder, recurrent episode, severe Current visit: No Status: Acute Risks, benefits, side effects, alternatives discussed w/pt: Yes (Resume Remeron 15 mg po q HS) Patient agreeable to treatment: Yes Qualifiers: Psychotic features: without psychotic features Qualified Code(s): F33.2 - Major depressive disorder, recurrent severe without psychotic features (2) Cocaine abuse in remission Current visit: No Status: Acute (3) Opioid abuse, in remission Current visit: No Status: Acute (4) Benzodiazepine abuse Current visit: Yes Status: Acute Plan: Close observation (History of Xanax dependency, concern over correction use of Klonopin. Monitor) Consult Discharge Plan - Plan Referrals: NO,PCP [Primary Care Provider] -
[2016-12-31] MEDS: Mirtazapine 15 MG TABLET PO SCH (20:55)
[2017-01-01] MEDS: clonazePAM 1 MG TABLET PO PRN ×3 (10:39→20:21)
--- NOTE | 2017-01-01 11:05 | Psychiatry Progress Note ---
Date of Encounter: 01/01/17 Time of Encounter: 10:55 Subjective Interval history: Patient was willing to meet with me today. He tells me "I am about the same, I guess". He states he still having suicidal thoughts with a plan to continue to try to get a shotgun when he gets out of here. He states "I have been trying for a couple weeks to get one to shoot myself. They're only a $100 bucks at [facility], but the damnedest thing is, they won't sell me one with my record ( criminal hx). I've still got some feelers out there and I think it will happen ". He tells me that he slept fine last night, but wants me to know he had a nightmare about killing his . He then states "I do not want to kill my , so I do not know why I had that dream, but I did have the dream anyway." He tells me that he thinks he has excepted the situation with his , things are fine and he just thought the dream was unusual. He denies any side effects of his medications. He states they are working fine and does not want to change anything nor talk about any changes. He states that he feels like he is less depressed since his taking the Remeron consistently. He denies any auditory/ visual hallucinations, denies any mind-control, mind-reading or paranoia. He denies any safety issues on the unit. Review of Systems Psychiatric: Reports: depression, anxiety, abnormal sleep pattern, suicidal ideation, change in appetite, anhedonia, change in libido, difficulty concentrating, hopelessness, irritability Objective: Exam Patient orientation: Yes Person, Yes Time, Yes Place, Yes Circumstance Level of alertness: Alert, Follows commands Patient appearance: Well Groomed Behavior: calm, cooperative Psychomotor activity: Normal Eye contact: Fleeting Contact Mood description: Euthymic/stable Affect description: full range Speech pattern: Normal rate, Normal rhythm, Normal tone, Appropriate Speech volume: Normal Thought process: Linear Thought content: Yes Suicidal ideation Judgment: Fair Insight: Partial Results - Vital Signs Vital Signs: Temp Pulse Resp BP Pulse Ox 98.7 F 96 12 116/85 97 01/01/17 08:32 01/01/17 08:32 01/01/17 08:32 01/01/17 08:32 12/29/16 20:44 Assessment and Plan (1) Major depressive disorder, recurrent episode, severe Current visit: No Status: Acute Risks, benefits, side effects, alternatives discussed w/pt: Yes (Resume Remeron 15 mg po q HS) Patient agreeable to treatment: Yes Qualifiers: Psychotic features: without psychotic features Qualified Code(s): F33.2 - Major depressive disorder, recurrent severe without psychotic features (2) Cocaine abuse in remission Current visit: No Status: Acute (3) Opioid abuse, in remission Current visit: No Status: Acute (4) Benzodiazepine abuse Current visit: Yes Status: Acute Plan: Close observation (History of Xanax dependency, concern over [facility] use of Klonopin. Monitor) Consult Discharge Plan - Plan Referrals: NO,PCP [Primary Care Provider] -
[2017-01-01] MEDS: Mirtazapine 15 MG TABLET PO SCH (20:00)
[2017-01-02] MEDS: clonazePAM 1 MG TABLET PO PRN ×3 (07:57→20:35)
--- NOTE | 2017-01-02 11:12 | Psychiatry Progress Note ---
Date of Encounter: 01/02/17 Time of Encounter: 10:55 Subjective Interval history: The patient tells me today "I am all right. I am feeling better". He denies any active suicidal/homicidal ideation, auditory/visual hallucinations. He reiterates too that the dream he had two nights ago was about his dying, not that he wants her to nor does he have thoughts of killing her. He states he does not feel as depressed nor as hopeless as he did. He states he feels the medications are working. He tells me that he did not sleep well last night but, "better than I normally do when I am not in here". He states his anxiety has decreased. He took Klonopin 1 mg 3 times yesterday which would help with his anxiety. We address the issue of long-term Klonopin use which he can discuss with his outpatient doctor. His discharge planning is not finalized in regards to his housing placement. He thinks that he might want to go home. He has domestic violence charges pending against him. With the anger and frustration he had with his filing for divorce I questioned him as to whether he wanted to go back home, truly, or if you might be better off finding somewhere else to live which he did stated earlier was what he wanted. He said he is not sure, but understands it might be better to live someplace else and he will work social staff worker on this. Review of Systems Psychiatric: Reports: depression, anxiety, abnormal sleep pattern, suicidal ideation, difficulty concentrating, hopelessness Objective: Exam Patient orientation: Yes Person, Yes Time, Yes Place, Yes Circumstance Level of alertness: Alert, Follows commands Patient appearance: Well Groomed Behavior: calm, cooperative Psychomotor activity: Normal Eye contact: Fleeting Contact Mood description: Depressed Affect description: flat Speech pattern: Normal rate, Normal rhythm, Normal tone, Appropriate Speech volume: Normal Thought process: Linear Thought content: Yes Intact Judgment: Fair Insight: Partial Results - Vital Signs Vital Signs: Temp Pulse Resp BP Pulse Ox 98.6 F 74 16 121/82 97 01/02/17 09:00 01/02/17 09:00 01/02/17 09:00 01/02/17 09:00 12/29/16 20:44 Assessment and Plan (1) Major depressive disorder, recurrent episode, severe Current visit: No Status: Acute Risks, benefits, side effects, alternatives discussed w/pt: Yes (Resume Remeron 15 mg po q HS) Patient agreeable to treatment: Yes Qualifiers: Psychotic features: without psychotic features Qualified Code(s): F33.2 - Major depressive disorder, recurrent severe without psychotic features (2) Cocaine abuse in remission Current visit: No Status: Acute (3) Opioid abuse, in remission Current visit: No Status: Acute (4) Benzodiazepine abuse Current visit: Yes Status: Acute Plan: Close observation (History of Xanax dependency, concern over [facility] use of Klonopin. Monitor) Consult Discharge Plan - Plan Referrals: NO,PCP [Primary Care Provider] -
[2017-01-02] MEDS: Mirtazapine 15 MG TABLET PO SCH (20:12)
[2017-01-03] MEDS: clonazePAM 1 MG TABLET PO PRN ×3 (09:57→20:45)
--- NOTE | 2017-01-03 13:58 | Psychiatry Progress Note ---
Date of Encounter: 01/03/17 Time of Encounter: 01:56 Subjective Interval history: Patient seen and interviewed. History and physical examination reviewed. Patient started noticing slight improvement in his mood. Suicidal ideations of started to become less intense and less frequent. Patient has been attending groups participating in activities becoming a little bit more future oriented and thinking about future planning. Tolerating medications fairly well still reporting of hopeless helpless modes especially at night when he is trying to sleep. Encouraged to work on a safety plan Review of Systems Psychiatric: Reports: depression, anxiety, abnormal sleep pattern, suicidal ideation, difficulty concentrating, hopelessness Objective: Exam Patient orientation: Yes Person, Yes Time, Yes Place, Yes Circumstance Level of alertness: Alert, Follows commands Patient appearance: Well Groomed Behavior: calm, cooperative Psychomotor activity: Normal Eye contact: Fleeting Contact Mood description: Depressed Affect description: flat Speech pattern: Normal rate, Normal rhythm, Normal tone, Appropriate Speech volume: Normal Thought process: Linear Thought content: Yes Intact Judgment: Fair Insight: Partial Results - Vital Signs Vital Signs: Temp Pulse Resp BP Pulse Ox 98 F 72 16 118/84 97 01/03/17 09:00 01/03/17 09:00 01/03/17 09:00 01/03/17 09:00 12/29/16 20:44 Assessment and Plan (1) Major depressive disorder, recurrent episode, severe Current visit: No Status: Acute Plan: Continue hospitalization, Close observation, Suicide Precautions per unit protocol, Encourage participation in unit milieu, Group Therapy, Monitor sleep, Monitor appetite Additional Plan: We will increase Remeron 30 mg at bedtime Risks, benefits, side effects, alternatives discussed w/pt: Yes (Resume Remeron 15 mg po q HS) Patient agreeable to treatment: Yes Qualifiers: Psychotic features: without psychotic features Qualified Code(s): F33.2 - Major depressive disorder, recurrent severe without psychotic features Consult Discharge Plan - Plan Referrals: NO,PCP [Primary Care Provider] -
[2017-01-03] MEDS: Mirtazapine 15 MG TABLET PO SCH (20:45)
--- NOTE | 2017-01-04 11:02 | Psychiatry Progress Note ---
Date of Encounter: 01/04/17 Time of Encounter: 10:40 Subjective Interval history: Patient seen and interviewed. Continue to make progress. Suicidal ideations have subsided. Patient is becoming more future oriented and hopeful and positive. Attending groups participating in activities working on a safety plan. Tolerating the increase in Remeron fairly well. Sleep and appetite is improved. Overall making progress and is feeling better. Review of Systems Psychiatric: Reports: depression, anxiety Objective: Exam Patient orientation: Yes Person, Yes Time, Yes Place, Yes Circumstance Level of alertness: Alert, Follows commands Patient appearance: Well Groomed Behavior: calm, cooperative Psychomotor activity: Normal Eye contact: Fleeting Contact Mood description: Euthymic/stable Affect description: constricted Speech pattern: Normal rate, Normal rhythm, Normal tone, Appropriate Speech volume: Normal Thought process: Linear Thought content: Yes Intact, No Suicidal ideation, No Homicidal ideation, No Overt delusions Perceptual disturbances: No Auditory hallucinations, No Visual hallucinations Judgment: Fair Insight: Partial Results - Vital Signs Vital Signs: Temp Pulse Resp BP Pulse Ox 99 F 96 18 121/85 97 01/04/17 09:00 01/04/17 09:00 01/04/17 09:00 01/04/17 09:00 12/29/16 20:44 Assessment and Plan (1) Major depressive disorder, recurrent episode, severe Current visit: No Status: Acute Plan: Continue hospitalization, Close observation, Suicide Precautions per unit protocol, Encourage participation in unit milieu, Group Therapy, Monitor sleep, Monitor appetite Additional Plan: Possible discharge tomorrow Risks, benefits, side effects, alternatives discussed w/pt: Yes (Resume Remeron 15 mg po q HS) Patient agreeable to treatment: Yes Qualifiers: Psychotic features: without psychotic features Qualified Code(s): F33.2 - Major depressive disorder, recurrent severe without psychotic features Consult Discharge Plan - Plan Referrals: NO,PCP [Primary Care Provider] -
[2017-01-04] MEDS: clonazePAM 1 MG TABLET PO PRN ×2 (12:10→20:42)
[2017-01-04] MEDS: Mirtazapine 15 MG TABLET PO SCH (20:41)
[2017-01-05 08:47] VITALS: BP 120/87
[2017-01-05] MEDS: clonazePAM 1 MG TABLET PO PRN (10:13)
--- NOTE | 2017-01-05 13:32 | Discharge Summary ---
Date of Encounter: 01/05/17 Time of Encounter: 13:28 Diagnosis - Discharge Diagnosis (1) Suicidal ideation Priority: Secondary Status: Acute (2) Major depressive disorder, recurrent episode, severe Priority: Primary Status: Acute Qualifiers: Psychotic features: without psychotic features Qualified Code(s): F33.2 - Major depressive disorder, recurrent severe without psychotic features Medications - Discharge Medications Omeprazole [PriLOSEC] 40 mg PO DAILY 30 Days 02/04/16 [Rx] ClonazePAM [Klonopin] 1 mg PO TID PRN #0 tablet 07/15/16 [Rx] Quetiapine Fumarate [Seroquel] 100 mg PO HS #30 tablet 07/22/16 [Rx] Mirtazapine [Remeron] 30 mg PO HS tablet 01/05/17 [Rx] Allergies Penicillins Allergy (Verified 12/29/16 20:43) Anaphylaxis Provider Date of admission: 12/30/16 01:39 Primary care physician: PCP RADHA Discharging clinician: Deep Lord Assessment and Plan - Patient/Caregiver Discharge Instructions Activity: resume usual activities as tolerated Diet: regular diet - Follow up Plan Follow up with: NO,PCP [Primary Care Provider] - Functional capacity at discharge: independent ambulation Overall status at discharge: Stable Disposition: Home, Self-Care Hospital Course Hospital course: Mr. Saxena is a 51 year old male admitted for suicidal ideation after having marital problems. Patient has a history of outpatient treatment for depression. In the hospital his medication was increased mirtazapine was increased to 30 mg at bedtime. His mood and sleep improved, he denied suicidal ideation and was future oriented and agreed to discharge. Prior to discharge patient was medically stable, nonsuicidal , he is looking forward to outpatient follow-up. - Time Spent with Patient Total time spent providing and/or coordinating discharge services: Greater than 30 minutes Quality - Multiple Antipsychotics Patient discharged on 2 or more antipsychotic medications: No Procedures - Procedures Procedures: Medication Management, Crisis Stabilization, Supportive Therapy, Group Therapy, Psychoeducational Therapy Mental Status Exam - Mental Status Exam Patient orientation: Yes Person, Yes Time, Yes Place, Yes Circumstance Level of alertness: Alert, Follows commands Patient appearance: Well Groomed Behavior: calm, cooperative Psychomotor activity: Normal Eye contact: Fleeting Contact Mood description: Euthymic/stable Affect description: constricted Speech pattern: Normal rate, Normal rhythm, Normal tone, Appropriate Speech Volume: Normal Thought process: Linear Thought Content: Yes Intact, No Suicidal ideation, No Homicidal ideation, No Overt delusions Perceptual Disturbances: No Auditory hallucinations, No Visual hallucinations Judgment: Fair Insight: Partial
== END 2017-01-05 14:50 | disposition home or self-care (01) | DRG 751 ==
LOC: EMEROO 20:24 → 1ANU 12-30 01:19 → SUATTDRO 12-30 01:39
PROVIDERS: ADMIT Psychiatry & Neurology Psychiatry; ATTEND Psychiatry & Neurology Psychiatry

== ENCOUNTER 2017-04-26 15:41 | Inpatient (IN) ==
--- NOTE | 2017-04-26 15:54 | Emergency Department Note ---
Disposition Clinical Impression: Suicidal ideation Disposition: Admitted As Inpatient Condition: Fair Referrals: Bill Ware DO [Non-Partnered Physician] - Forms: ED Satisfaction Letter Time of Disposition: 17:07 Psych HPI - General Chief Complaint: ED Psychiatric Symptoms Stated Complaint: SI Time Seen by Provider: 04/26/17 15:45 Source: patient Mode of arrival: private vehicle Limitations: no limitations Nursing Notes Reviewed: Yes Vital Signs Reviewed: Yes - History of Present Illness Pt complaint: suicidal ideation, feels depressed Onset (ago): month(s) Duration: intermittent History of similar episodes: Yes Improves with: none Worsens with: other (Stop taking his medications 2 weeks ago because he ran out) Alleged intoxication: No Associated Psychiatric Symptoms: depression, suicidal ideation Traumatic symptoms: denies traumatic injury Treatments prior to arrival: none Self harm or harm to others: admits thoughts of self harm - Related Data Previous Rx's Medication Instructions Recorded Omeprazole [PriLOSEC] 40 mg PO DAILY 30 Days 02/04/16 clonazePAM [Klonopin] 1 mg PO TID PRN #0 tablet 07/15/16 Quetiapine Fumarate [Seroquel] 100 mg PO HS #30 tablet 07/22/16 Mirtazapine [Remeron] 30 mg PO HS tablet 01/05/17 Allergies Allergy/AdvReac Type Severity Reaction Status Date / Time Penicillins Allergy Anaphylaxis Verified 12/29/16 20:43 All systems ED: reviewed and negative except as stated. Constitutional: Reports: as per HPI Eyes: Reports: as per HPI ENT ED: Reports: as per HPI Cardiovascular: Reports: as per HPI Respiratory: Reports: as per HPI Gastrointestinal: Reports: as per HPI Genitourinary: Reports: as per HPI Musculoskeletal: Reports: as per HPI Integumentary: Reports: as per HPI Neurological: Reports: as per HPI Psychiatric: Reports: depression, suicidal thoughts Endocrine: Reports: as per HPI Hematological/Lymphatic: Reports: as per HPI Allergic/Immunologic: Reports: as per HPI Past Medical History - Past Medical History Source: patient Medical history: Reports: arthritis, GERD, seizures Psychiatric history: Reports: anxiety, depression, previous psychiatric hospitalization - Social History Smoking Status: Former smoker Smokeless Tobacco Status: No Alcohol use: Reports: none Drug use: Reports: marijuana Physical Exam - General Limitations: no limitations General appearance: alert - Head Head exam: atraumatic - Eye Eye exam: Present: normal appearance - ENT ENT exam: normal exam - Neck Neck exam: Present: normal inspection, full ROM - Chest Chest inspection: Present: normal inspection, symmetric chest wall rise - Respiratory Respiratory exam: Present: normal lung sounds bilaterally. Absent: respiratory distress - Cardiovascular Cardiovascular exam: Present: regular rate, normal rhythm, normal heart sounds - Rectal Exam Rectal exam: Present: deferred - Extremities Exam Extremities exam: Present: normal inspection - Neurological Exam Neurological exam: Present: alert, oriented X3, CN II-XII intact - Psychiatric Psychiatric exam: Present: normal affect, normal mood - Skin Skin exam: Present: warm, dry, intact Course Course Narrative: Patient presents to the emergency department complaining of suicidal ideation. I will attempt to clear him medically for behavioral evaluation. He has no physical complaints - Reevaluation(s) Reevaluation #1: 16:35: cleared medically Vital Signs Temperature 98.5 F 04/26/17 15:42 Pulse Rate 92 04/26/17 15:42 Respiratory Rate 18 04/26/17 15:42 Blood Pressure 138/93 04/26/17 15:42 O2 Sat by Pulse Oximetry 96 04/26/17 15:42 Temperature 98.5 F 04/26/17 15:42 Pulse Rate 92 04/26/17 15:42 Respiratory Rate 18 04/26/17 15:42 Blood Pressure 138/93 04/26/17 15:42 O2 Sat by Pulse Oximetry 96 04/26/17 15:42 Oxygen Delivery Oxygen Delivery Room Air Psych - Lab Data Lab results reviewed: Yes I reviewed the patient's lab results. Result diagrams: 04/26/17 16:11 04/26/17 16:11 Lab Results 04/26/17 04/26/17 04/26/17 Range/Units 16:11 16:11 16:16 WBC 6.5 (4.3-11.1) K/mcL RBC 4.77 (4.19-5.50) M/mcL Hgb 14.8 (12.9-16.9) g/dL Hct 42.7 (37.5-50.1) % MCV 89.5 (83.0-100.0) fL MCH 31.0 (28.0-33.3) pg MCHC 34.7 (31.6-35.5) g/dL RDW 11.8 (11.5-14.5) % Plt Count 275 (140-400) K/mcL MPV 10.0 (9.4-12.4) fL Immature Gran % 0.2 (0-4) % Seg Neutrophils % 50.2 % Lymphocytes % 37.0 % Monocytes % 8.0 % Eosinophils % 3.7 % Basophils % 0.9 % Neutrophils # 3.3 (1.6-8.9) K/mcL Lymphocytes # 2.4 (0.6-4.6) K/mcL Monocytes # 0.5 (0.0-1.3) K/mcL Eosinophils # 0.2 (0.0-0.6) K/mcL Basophils # 0.1 (0.0-0.2) K/mcL Immature Plt Fraction 3.2 (1.1-6.1) % Sodium 138 (136-145) mEq/L Potassium 3.7 (3.5-4.5) mEq/L Chloride 104 (98-109) mEq/L Carbon Dioxide 24 (19-29) mEq/L BUN 10 (8-26) mg/dL Creatinine 1.23 (0.72-1.25) mg/dL Est GFR ( Amer) > 60 (> 60) Est GFR (Non-Af Amer) > 60 (> 60) BUN/Creatinine Ratio 8 (6-26) Glucose 137 H (70-99) mg/dL Calculated Osmolality 287 (280-300) Calcium 9.7 (8.6-10.8) mg/dL Salicylates < 5.0 L (15-30) mg/dL Urine Opiates Screen Negative (Gqgfjd=557) ng/mL Acetaminophen < 1.0 L (10-30) mcg/mL Ur Barbiturates Screen Negative (Kduvej=234) ng/mL Ur Phencyclidine Scrn Negative (Cutoff=25) ng/mL Ur Amphetamines Screen Negative (Gibesg=7175) ng/mL U Benzodiazepines Scrn Negative (Deoxzg=102) ng/mL Urine Cocaine Screen Negative (Cutoff= 300) ng/mL U Marijuana (THC) Screen Positive H (Cutoff = 50) ng/mL Ethyl Alcohol < 10 (0-10) mg/dL Psychiatric Medical Clearance - Medical Clearance Checklist Medical History: No Social History Section defined Current Vitals: Last Vital Signs Temp 98.5 F 04/26/17 15:42 Pulse 92 05/28/17 15:42 Resp 18 04/26/17 15:42 BP 138/93 04/26/17 15:42 Pulse Ox 96 04/26/17 15:42 Psychiatric Lab Panel: Drug Levels and Toxicity 04/26/17 04/26/17 16:11 16:16 Urine Opiates Screen Negative Acetaminophen < 1.0 L Ur Barbiturates Screen Negative Ur Phencyclidine Scrn Negative Ur Amphetamines Screen Negative U Benzodiazepines Scrn Negative Urine Cocaine Screen Negative U Marijuana (THC) Screen Positive H Ethyl Alcohol < 10 Abnormal Labs: Abnormal lab results Glucose 137 mg/dL (70-99) H 04/26/17 16:11 Salicylates < 5.0 mg/dL (15-30) L 04/26/17 16:11 Acetaminophen < 1.0 mcg/mL (10-30) L 04/26/17 16:11 U Marijuana (THC) Screen Positive ng/mL (Cutoff = 50) H 04/26/17 16:16 Statement of Medical Clearance: I have evaluated the patient, reviewed diagnostic information, and certify that the patient's medical condition is sufficiently stable that transfer to the psychiatric unit does not pose a significant risk of deterioration.
[2017-04-26 16:20] LABS: Basophils # 0.1 K/mcL (0.0-0.2); Basophils % 0.9 %; Eosinophils # 0.2 K/mcL (0.0-0.6); Eosinophils % 3.7 %; Hematocrit 42.7 % (37.5-50.1); Hemoglobin 14.8 g/dL (12.9-16.9); Immature Granulocytes % 0.2 % (0-4); Immature Platelets 3.2 % (1.1-6.1); Lymphocytes # 2.4 K/mcL (0.6-4.6); Mean Corpuscular HGB Conc 34.7 g/dL (31.6-35.5); Mean Corpuscular Volume 89.5 fL (83.0-100.0); Monocytes # 0.5 K/mcL (0.0-1.3); Neutrophils # 3.3 K/mcL (1.6-8.9); Platelet Count 275 K/mcL (140-400); Red Blood Count 4.77 M/mcL (4.19-5.50); Red Cell Distribution Width 11.8 % (11.5-14.5); Segmented Neutrophils % 50.2 %
[2017-04-26 16:32] LABS: Amphetamine Screen,Urine Negative ng/mL (Cutoff=1000); Barbiturate Screen,Urine Negative ng/mL (Cutoff=200); Benzodiazepines Screen,Urine Negative ng/mL (Cutoff=200); Cannabinoid Screen,Urine Positive ng/mL (Cutoff = 50); Cocaine Screen,Urine Negative ng/mL (Cutoff= 300); Opiate Screen,Urine Negative ng/mL (Cutoff=300); Phencyclidine Screen,Urine Negative ng/mL (Cutoff=25)
[2017-04-26 16:32] LABS: BUN/Creatinine Ratio 8 (6-26); Blood Urea Nitrogen 10 mg/dL (8-26); Calcium 9.7 mg/dL (8.6-10.8); Carbon Dioxide 24 mEq/L (19-29); Chloride 104 mEq/L (98-109); Glucose 137 mg/dL (70-99); Osmolality,Calculated 287 (280-300); Potassium 3.7 mEq/L (3.5-4.5); Sodium 138 mEq/L (136-145); eGFR For African Americans > 60 (> 60); eGFR For Non-African Americans > 60 (> 60)
[2017-04-26 16:33] LABS: Acetaminophen < 1.0 mcg/mL (10-30); Ethanol < 10 mg/dL (0-10); Salicylate < 5.0 mg/dL (15-30)
[2017-04-26] MEDS ORDERED: *HR* LORazepam 2 MG/ML VIAL IM PRN (17:22)
[2017-04-26] MEDS ORDERED: Mag Hydrox/Al Hydrox/Simeth 30 ML UDC PO PRN (17:22)
[2017-04-26] MEDS ORDERED: hydrOXYzine pamoate 25 MG CAPSULE PO PRN (17:22)
[2017-04-26] MEDS ORDERED: MOM Conc 10 ML UD.LIQ PO PRN (17:22)
[2017-04-26] MEDS ORDERED: Ibuprofen 400 MG TABLET PO PRN (17:22)
[2017-04-26] MEDS ORDERED: Haloperidol Lactate 5 MG/ML VIAL IM PRN (17:22)
[2017-04-26] MEDS ORDERED: traZODone 50 MG TABLET PO PRN (17:22)
[2017-04-26] MEDS ORDERED: *HR* LORazepam 1 MG TABLET PO PRN (17:22)
[2017-04-26] MEDS: Mirtazapine 15 MG TABLET PO SCH (20:30)
--- NOTE | 2017-04-27 09:59 | Psychiatry History & Physical ---
Date of Encounter: 04/27/17 Time of Encounter: 09:30 History of Present Illness Patient Stated Chief Complaint: Suicidal ideation Medicare Admission Attestation: For traditional Medicare patients the provided hospital inpatient services are reasonable and necessary and in the case of services not specified as inpatient -only under 42 CFR 419.22 (n), that they are appropriately provided as inpatient services in accordance 42 CFR 412.3. For Critical [facility] the patient may reasonably be expected to be discharged or transferred to a hospital within 96 hours after admission to the Critical [facility]. Admitted From: Emergency Dept History of Present Illness: Mr. Saxena is a 51 year old male admitted from the emergency department for depression and suicidal ideation. Patient is stressed out by family issues and has been out of his medication for the last 2 weeks, reports poor sleep, increase in anxiety, worsening depression and suicidal ideation with different plans. Patient was hospitalized in November of this year with similar presentation and he was discharged on medication and follow-up plans. Apparently he was noncompliant with follow-up and she has been working in [place] for a few weeks. UDS was positive for THC. Past Med Surg Social Fam HX - Past Medical History Medical history: arthritis, GERD, seizures - Past Psychiatric History Psychiatric history: Reports: depression, previous psychiatric hospitalization Past psychiatric history details: Most recent hospitalization 12/30/2016 - Social History Smoking Status: Former smoker Smokeless Tobacco Status: No Alcohol use: none Drug use: marijuana - Family History Mother Living Status: Hx Family Endocrine Disorder: Yes Father Living Status: Still Living Medications & Allergies Omeprazole [PriLOSEC] 40 mg PO DAILY 30 Days 02/04/16 [Rx] clonazePAM [Klonopin] 1 mg PO TID PRN #0 tablet 07/15/16 [Rx] Mirtazapine [Remeron] 30 mg PO HS tablet 01/05/17 [Rx] Allergies Penicillins Allergy (Verified 12/29/16 20:43) Anaphylaxis Review of Systems Psychiatric: Reports: depression, anxiety, suicidal ideation, hopelessness Mental Status Exam Patient orientation: Yes Person, Yes Time, Yes Place Level of alertness: Alert Patient appearance: Appropriate, Unkempt Behavior: calm, cooperative, anxious, guarded Psychomotor activity: Slowed Eye contact: Minimal Contact Mood description: Depressed, Anxious, Irritable Affect description: congruent with mood, constricted, blunted, anxious Speech pattern: Normal rate, Normal rhythm, Normal tone Speech volume: Normal Thought process: Linear, Goal Oriented Thought content: Yes Suicidal ideation, No Homicidal ideation, No Overt delusions Perceptual disturbances: No Auditory hallucinations, No Visual hallucinations Attention span: Capable of Focused Attention Memory description: Grossly Intact Patient reliability: Reliable Historian Intelligence estimate: Average Judgment: Limited Insight: Partial Results - Vital Signs Vital signs: Temp Pulse Resp BP Pulse Ox 97.8 F 63 16 120/83 96 04/27/17 08:47 04/27/17 08:47 04/27/17 08:47 04/27/17 08:47 04/26/17 15:42 - Labs Labs: Laboratory Last Values WBC 6.5 K/mcL (4.3-11.1) 04/26/17 16:11 RBC 4.77 M/mcL (4.19-5.50) 04/26/17 16:11 Hgb 14.8 g/dL (12.9-16.9) 04/26/17 16:11 Hct 42.7 % (37.5-50.1) 04/26/17 16:11 MCV 89.5 fL (83.0-100.0) 04/26/17 16:11 MCH 31.0 pg (28.0-33.3) 04/26/17 16:11 MCHC 34.7 g/dL (31.6-35.5) 04/26/17 16:11 RDW 11.8 % (11.5-14.5) 04/26/17 16:11 Plt Count 275 K/mcL (140-400) 04/26/17 16:11 MPV 10.0 fL (9.4-12.4) 04/26/17 16:11 Immature Gran % 0.2 % (0-4) 04/26/17 16:11 Seg Neutrophils % 50.2 % 04/26/17 16:11 Lymphocytes % 37.0 % 04/26/17 16:11 Monocytes % 8.0 % 04/26/17 16:11 Eosinophils % 3.7 % 04/26/17 16:11 Basophils % 0.9 % 04/26/17 16:11 Neutrophils # 3.3 K/mcL (1.6-8.9) 04/26/17 16:11 Lymphocytes # 2.4 K/mcL (0.6-4.6) 04/26/17 16:11 Monocytes # 0.5 K/mcL (0.0-1.3) 04/26/17 16:11 Eosinophils # 0.2 K/mcL (0.0-0.6) 04/26/17 16:11 Basophils # 0.1 K/mcL (0.0-0.2) 04/26/17 16:11 Immature Plt Fraction 3.2 % (1.1-6.1) 04/26/17 16:11 Sodium 138 mEq/L (136-145) 04/26/17 16:11 Potassium 3.7 mEq/L (3.5-4.5) 04/26/17 16:11 Chloride 104 mEq/L (98-109) 04/26/17 16:11 Carbon Dioxide 24 mEq/L (19-29) 04/26/17 16:11 BUN 10 mg/dL (8-26) 04/26/17 16:11 Creatinine 1.23 mg/dL (0.72-1.25) 04/26/17 16:11 Est GFR ( Amer) > 60 (> 60) 04/26/17 16:11 Est GFR (Non-Af Amer) > 60 (> 60) 04/26/17 16:11 BUN/Creatinine Ratio 8 (6-26) 04/26/17 16:11 Glucose 137 mg/dL (70-99) H 04/26/17 16:11 Calculated Osmolality 287 (280-300) 04/26/17 16:11 Calcium 9.7 mg/dL (8.6-10.8) 04/26/17 16:11 Salicylates < 5.0 mg/dL (15-30) L 04/26/17 16:11 Urine Opiates Screen Negative ng/mL (Uhbehi=993) 04/26/17 16:16 Acetaminophen < 1.0 mcg/mL (10-30) L 04/26/17 16:11 Ur Barbiturates Screen Negative ng/mL (Epyadn=750) 04/26/17 16:16 Ur Phencyclidine Scrn Negative ng/mL (Cutoff=25) 04/26/17 16:16 Ur Amphetamines Screen Negative ng/mL (Qafgdv=3596) 04/26/17 16:16 U Benzodiazepines Scrn Negative ng/mL (Qvthzn=556) 04/26/17 16:16 Urine Cocaine Screen Negative ng/mL (Cutoff= 300) 04/26/17 16:16 U Marijuana (THC) Screen Positive ng/mL (Cutoff = 50) H 04/26/17 16:16 Ethyl Alcohol < 10 mg/dL (0-10) 04/26/17 16:11 Assessment and Plan (1) Major depressive disorder, recurrent episode, severe Current visit: No Status: Acute Plan: Admit inpatient for safety and stabilization, Close observation, Suicide Precautions per unit protocol, Encourage participation in unit milieu, Group Therapy, Monitor sleep, Monitor appetite Additional Plan: We will increase trazodone to 100 mg at bedtime. Will add Klonopin 1 mg twice a day when necessary for anxiety. Risks, benefits, side effects, alternatives discussed w/pt: Yes Patient agreeable to treatment: Yes Qualifiers: Psychotic features: without psychotic features Qualified Code(s): F33.2 - Major depressive disorder, recurrent severe without psychotic features
[2017-04-27] MEDS: clonazePAM 1 MG TABLET PO PRN ×2 (11:23→21:41)
[2017-04-27] MEDS: traZODone 50 MG TABLET PO PRN (21:40)
[2017-04-27] MEDS: Mirtazapine 15 MG TABLET PO SCH (21:41)
[2017-04-28] MEDS: clonazePAM 1 MG TABLET PO PRN ×2 (13:00→20:22)
--- NOTE | 2017-04-28 13:25 | Psychiatry Progress Note ---
Date of Encounter: 04/28/17 Time of Encounter: 13:00 Subjective Interval history: Patient is seen for follow-up. He will continue to endorse suicidal and homicidal ideation or nursing assessment. She denies any improvements in his condition. He is guarded and vague and given no answer to questions. He stated that she plans to kill himself after his daughter's wedding in May 16. He is not motivated to participate in treatment or to set Treatment goals. Staff report he is socializing and joking with other patients and not showing any signs of distress. Review of Systems Psychiatric: Reports: depression, anxiety, suicidal ideation, hopelessness Objective: Exam Patient orientation: Yes Person, Yes Time, Yes Place Level of alertness: Alert Patient appearance: Appropriate, Well Groomed Behavior: calm, cooperative, hostile, guarded Psychomotor activity: Normal Eye contact: Minimal Contact Mood description: Anxious, Irritable Affect description: constricted, dysphoric, incongruent with mood Speech pattern: Normal rate, Normal rhythm, Normal tone, Delayed, Limited Speech volume: Normal Thought process: Linear, Goal Oriented Thought content: Yes Suicidal ideation, Yes Homicidal ideation, No Overt delusions Perceptual disturbances: No Auditory hallucinations, No Visual hallucinations Judgment: Fair Insight: Partial Results - Vital Signs Vital Signs: Temp Pulse Resp BP Pulse Ox 97.6 F 76 16 121/85 96 04/28/17 08:41 04/28/17 08:41 04/28/17 08:41 04/28/17 08:41 04/26/17 15:42 Assessment and Plan (1) Major depressive disorder, recurrent episode, severe Current visit: No Status: Acute Plan: Continue hospitalization, Close observation, Suicide Precautions per unit protocol, Encourage participation in unit milieu, Group Therapy, Monitor sleep, Monitor appetite Risks, benefits, side effects, alternatives discussed w/pt: Yes Patient agreeable to treatment: Yes Qualifiers: Psychotic features: without psychotic features Qualified Code(s): F33.2 - Major depressive disorder, recurrent severe without psychotic features (2) Substance abuse Current visit: No Status: Acute Plan: Continue hospitalization, Close observation, Suicide Precautions per unit protocol, Encourage participation in unit milieu, Group Therapy, Monitor sleep, Monitor appetite Risks, benefits, side effects, alternatives discussed w/pt: Yes Patient agreeable to treatment: No Consult Discharge Plan - Plan Referrals: NO,PCP [Primary Care Provider] -
[2017-04-28] MEDS: Mirtazapine 15 MG TABLET PO SCH (20:22)
[2017-04-28] MEDS: traZODone 50 MG TABLET PO PRN (20:22)
[2017-04-29] MEDS: clonazePAM 1 MG TABLET PO PRN ×2 (12:12→21:17)
[2017-04-29] MEDS ORDERED: traZODone 50 MG TABLET PO PRN (13:55)
--- NOTE | 2017-04-29 14:02 | Psychiatry Progress Note ---
Date of Encounter: 04/29/17 Time of Encounter: 13:30 Subjective Interval history: Patient seen for follow-up with the nursing staff. Staff reported patient is irritable, angry and demanding from staff. He is minimally participating in activities or GROUPS. He continued to endorse suicide and homicide ideation or nursing assessments. He stated that no medication is helping him and demanding more Klonopin. He was directed and educated about medication and proper dosing. He is irritable and guarded and hostile to this provider and nursing staff. He was advised on hospitalization on a pink slip and different options available on exploration of 72 hour hold. Review of Systems Psychiatric: Reports: depression, anxiety, suicidal ideation, hopelessness Objective: Exam Patient orientation: Yes Person, Yes Time, Yes Place Level of alertness: Alert Patient appearance: Appropriate, Unkempt Behavior: cooperative, agitated, hostile, uncooperative, guarded Psychomotor activity: Normal Eye contact: Avoids Eye Contact Mood description: Angry, Labile, Irritable Affect description: labile, constricted, dysphoric Speech pattern: Normal rate, Normal rhythm, Normal tone, Other (Argumentative, disrespectful, hostile) Speech volume: Normal Thought process: Linear, Goal Oriented Thought content: Yes Suicidal ideation, Yes Homicidal ideation, No Overt delusions Perceptual disturbances: No Auditory hallucinations, No Visual hallucinations Judgment: Fair Insight: Partial Results - Vital Signs Vital Signs: Temp Pulse Resp BP Pulse Ox 98 F 77 16 114/82 96 04/29/17 09:00 04/29/17 09:00 04/29/17 09:00 04/29/17 09:00 04/26/17 15:42 Assessment and Plan (1) Major depressive disorder, recurrent episode, severe Current visit: No Status: Acute Plan: Continue hospitalization, Close observation, Suicide Precautions per unit protocol, Encourage participation in unit milieu, Group Therapy, Monitor sleep, Monitor appetite Additional Plan: Reduce trazodone dose from 100 mg 250 mg at at bedtime with when necessary Risks, benefits, side effects, alternatives discussed w/pt: Yes Patient agreeable to treatment: Yes Qualifiers: Psychotic features: without psychotic features Qualified Code(s): F33.2 - Major depressive disorder, recurrent severe without psychotic features (2) Substance abuse Current visit: No Status: Acute Plan: Continue hospitalization, Close observation, Suicide Precautions per unit protocol, Encourage participation in unit milieu, Group Therapy, Monitor sleep, Monitor appetite Risks, benefits, side effects, alternatives discussed w/pt: Yes Patient agreeable to treatment: No Consult Discharge Plan - Plan Referrals: NO,PCP [Primary Care Provider] -
[2017-04-29] MEDS: Mirtazapine 15 MG TABLET PO SCH (21:17)
[2017-04-30 09:26] VITALS: BP 115/89
[2017-04-30] MEDS: clonazePAM 1 MG TABLET PO PRN ×2 (10:30→15:27)
--- NOTE | 2017-04-30 13:54 | Discharge Summary ---
Date of Encounter: 04/30/17 Time of Encounter: 13:30 Diagnosis - Discharge Diagnosis (1) Major depressive disorder, recurrent episode, severe Status: Acute Qualifiers: Psychotic features: without psychotic features Qualified Code(s): F33.2 - Major depressive disorder, recurrent severe without psychotic features (2) Substance abuse Status: Acute Medications - Discharge Medications Prescriptions: clonazePAM [Klonopin] 1 mg PO BID PRN #60 tablet PRN Reason: Anxiety Mirtazapine [Remeron] 30 mg PO HS #30 tablet traZODone [TraZODone] 50 mg PO HS PRN #30 tablet PRN Reason: Insomnia Omeprazole [PriLOSEC] 40 mg PO DAILY 30 Days 02/04/16 [Rx] Mirtazapine [Remeron] 30 mg PO HS #30 tablet 04/30/17 [Rx] clonazePAM [Klonopin] 1 mg PO BID PRN #60 tablet 04/30/17 [Rx] traZODone [TraZODone] 50 mg PO HS PRN #30 tablet 04/30/17 [Rx] Allergies Penicillins Allergy (Verified 12/29/16 20:43) Anaphylaxis Provider Date of admission: 04/26/17 17:07 Primary care physician: PCP NO Discharging clinician: [facility] Assessment and Plan - Patient/Caregiver Discharge Instructions Activity: resume usual activities as tolerated Diet: regular diet Additional Instructions: 22/06 mental health crisis line for [facility] is [phone]. - Follow up Plan Follow up with: M,[facility] [Other] (To start services, walk in Thursday through Thursday from 8:00am - 3:00pm. Bring your photo ID, medication list, and proof of income, if you have income. It is best to come early in the day, as the initial assessment will take a few hours. At the conclusion of this visit, you will receive follow -up appointments for the psychiatrist and counselor.) Functional capacity at discharge: independent ambulation Overall status at discharge: Stable Disposition: Home, Self-Care Hospital Course Hospital course: Mr. Saxena is a 51 year old male admitted for suicidal ideation. For details of the admission please see H&P On the units patient was started on his medication including mirtazapine and trazodone and Klonopin. He reported improved sleep and lessening anxiety he endorsed suicidal thoughts initially and prior to discharge she denied any suicidal ideation or thoughts of harming himself, he was future oriented with plans to go back to [place] where he has a temporary job and some family. He was educated them in for his about keeping sobriety and not using any drugs and still compliant with medication to maintain his mental stability. Prior to discharge patient was interviewed by this provider and team members from nursing and social work and his discharge plan were discussed, he was offered to stay in the hospital longer but she was ready for discharge and ask to be discharged to carry his plans of going to [place]. His discharge in stable condition nonsuicidal and medically stable. His medication were ordered with an additional refill to allow him enough time to find mental health clinic or provider. - Time Spent with Patient Total time spent providing and/or coordinating discharge services: Greater than 30 minutes Quality - Multiple Antipsychotics Patient discharged on 2 or more antipsychotic medications: No Procedures - Procedures Procedures: Medication Management, Crisis Stabilization, Supportive Therapy, Group Therapy, Psychoeducational Therapy Mental Status Exam - Mental Status Exam Patient orientation: Yes Person, Yes Time, Yes Place Level of alertness: Alert Patient appearance: Appropriate, Well Groomed Behavior: calm, cooperative Psychomotor activity: Normal Eye contact: Maintains Eye Contact Mood description: Euthymic/stable Affect description: congruent with mood, full range Speech pattern: Normal rate, Normal rhythm, Normal tone Speech Volume: Normal Thought process: Linear, Goal Oriented Thought Content: No Suicidal ideation, No Homicidal ideation, No Overt delusions Perceptual Disturbances: No Auditory hallucinations, No Visual hallucinations Judgment: Limited Insight: Partial
== END 2017-04-30 15:33 | disposition home or self-care (01) | DRG 751 ==
LOC: EMEROO 15:41 → SUATTDRO 17:07 → 1ANU 17:07
PROVIDERS: ADMIT Student in an Organized Health Care Education/Training Program; ATTEND Psychiatry & Neurology Psychiatry

== ENCOUNTER 2017-05-08 08:31 | Inpatient (IN) ==
[2017-05-08 08:50] LABS: Basophils # 0.1 K/mcL (0.0-0.2); Basophils % 1.6 %; Eosinophils # 0.2 K/mcL (0.0-0.6); Eosinophils % 4.6 %; Hematocrit 45.9 % (37.5-50.1); Hemoglobin 15.5 g/dL (12.9-16.9); Immature Granulocytes % 0.2 % (0-4); Immature Platelets 3.2 % (1.1-6.1); Lymphocytes # 1.9 K/mcL (0.6-4.6); Lymphocytes % 38.5 %; Mean Corpuscular HGB Conc 33.8 g/dL (31.6-35.5); Mean Corpuscular Hemoglobin 30.5 pg (28.0-33.3); Mean Corpuscular Volume 90.4 fL (83.0-100.0); Mean Platelet Volume 9.8 fL (9.4-12.4); Monocytes # 0.3 K/mcL (0.0-1.3); Monocytes % 6.9 %; Neutrophils # 2.4 K/mcL (1.6-8.9); Platelet Count 266 K/mcL (140-400); Red Blood Count 5.08 M/mcL (4.19-5.50); Red Cell Distribution Width 11.7 % (11.5-14.5); Segmented Neutrophils % 48.2 %
[2017-05-08 09:04] LABS: Acetaminophen < 1.0 mcg/mL (10-30); BUN/Creatinine Ratio 10 (6-26); Blood Urea Nitrogen 11 mg/dL (8-26); Calcium 9.7 mg/dL (8.6-10.8); Carbon Dioxide 23 mEq/L (19-29); Chloride 108 mEq/L (98-109); Ethanol < 10 mg/dL (0-10); Glucose 118 mg/dL (70-99); Osmolality,Calculated 288 (280-300); Potassium 4.5 mEq/L (3.5-4.5); Salicylate < 5.0 mg/dL (15-30); Sodium 139 mEq/L (136-145); eGFR For African Americans > 60 (> 60); eGFR For Non-African Americans > 60 (> 60)
[2017-05-08 09:15] LABS: Bilirubin,Urine Negative (Negative); Blood,Urine Negative (Negative); Clarity,Urine Clear (Clear); Color,Urine Yellow (Yellow); Glucose,Urine (UA) Normal (Normal); Ketones,Urine Negative (Negative); Leukocyte Esterase,Urine Negative (Negative); Nitrite,Urine Negative (Negative); Protein,Urine Negative (Neg-Trace); Urobilinogen,Urine Normal (Normal)
[2017-05-08 09:19] LABS: Amphetamine Screen,Urine Negative ng/mL (Cutoff=1000); Barbiturate Screen,Urine Negative ng/mL (Cutoff=200); Benzodiazepines Screen,Urine Negative ng/mL (Cutoff=200); Cannabinoid Screen,Urine Positive ng/mL (Cutoff = 50); Cocaine Screen,Urine Negative ng/mL (Cutoff= 300); Opiate Screen,Urine Negative ng/mL (Cutoff=300); Phencyclidine Screen,Urine Negative ng/mL (Cutoff=25)
--- NOTE | 2017-05-08 10:11 | Emergency Department Note ---
Disposition Clinical Impression: Suicidal ideation Disposition: Admitted As Inpatient Condition: Good Time of Disposition: 18:23 General Adult HPI - General Chief complaint: ED Psychiatric Symptoms Stated complaint: SI Time Seen by Provider: 05/08/17 08:35 Source: patient Limitations: no limitations Nursing Notes Reviewed: Yes Vital Signs Reviewed: Yes - History of Present Illness HPI Narrative: One-year history of suicidal ideations. Has stopped taking his psych meds. Does have a history of depression. States he does have a plan of shooting himself. Pain Scale: 0 - Related Data Home Medications Medication Instructions Recorded Confirmed Gabapentin [Neurontin] 300 mg PO TID PRN 05/08/17 05/08/17 Previous Rx's Medication Instructions Recorded Omeprazole [PriLOSEC] 40 mg PO DAILY 30 Days 02/04/16 Mirtazapine [Remeron] 30 mg PO HS #30 tablet 04/30/17 clonazePAM [Klonopin] 1 mg PO BID PRN #60 tablet 04/30/17 traZODone [TraZODone] 50 mg PO HS PRN #30 tablet 04/30/17 Allergies Allergy/AdvReac Type Severity Reaction Status Date / Time Penicillins Allergy Anaphylaxis Verified 12/29/16 20:43 Review of Systems: Patient denies any fevers or chills. He denies any nausea vomiting or diarrhea. He denies any chest pain or shortness of breath. He denies any urinary symptoms. He denies any headaches or visual changes. He denies any hallucinations visual or audio. He does report suicidal ideations with a plan of shooting himself. He denies homicidal ideations at this time however he states he is having dreams where kills people. He denies any swelling or edema to his extremities. All systems ED: reviewed and negative except as stated. Past Medical History - Past Medical History Attestation: Yes The following information was validated with the patient. Medical history: Reports: arthritis, GERD, seizures Psychiatric history: Reports: depression, previous psychiatric hospitalization - Social History Smoking Status: Former smoker Smokeless Tobacco Status: No Alcohol use: Reports: none Drug use: Reports: marijuana Physical Exam - General Limitations: no limitations General appearance: alert, in no apparent distress - Head Head exam: atraumatic, normocephalic, normal inspection - Eye Eye exam: Present: normal appearance, PERRL, EOMI. Absent: scleral icterus - ENT ENT exam: normal exam, normal oropharynx, mucous membranes moist - Neck Neck exam: Present: normal inspection, full ROM, trachea midline - Chest Chest inspection: Present: normal inspection, symmetric chest wall rise. Absent : tenderness - Respiratory Respiratory exam: Present: normal lung sounds bilaterally. Absent: respiratory distress, wheezes - Cardiovascular Cardiovascular exam: Present: regular rate, normal rhythm, normal heart sounds - Abdominal Exam Abdominal exam: Present: soft, Non-Tender, normal bowel sounds. Absent: tenderness, distention, guarding, rebound, rigidity, organomegaly - Extremities Exam Extremities exam: Present: normal inspection, full ROM, normal capillary refill. Absent: tenderness, pedal edema - Back Exam Back exam: Present: normal inspection, full ROM. Absent: tenderness - Neurological Exam Neurological exam: Present: alert, oriented X3 - Psychiatric Psychiatric exam: Present: normal affect, normal mood - Skin Skin exam: Present: warm, dry, intact, normal color. Absent: rash, cyanosis, diaphoresis, erythema, pallor, mottled Course Course Narrative: Patient with a history of depression presenting to the emergency department complaining of suicidal ideations intermittently for the past year. He was discharged from 1 A week ago and has since stopped taking his medications. He states that he does have access to guns at his house and he will shoot himself. He denies any homicidal ideations at this time however states he has been having dreams about killing people. He has been in longterm before for shooting someone. He states that he feels safe obvious here in the emergency department however he does not feel safe outside of the emergency department. He admits to marijuana use. He denies any other drug or alcohol use. He has no medical complaints at this time. His lung sounds are clear heart tones are normal abdomen is soft and nontender. We will get a basic workup on the patient provide him with breakfast and have one a speak with him. He is currently pink slipped for his suicidal ideations. - Reevaluation(s) Reevaluation #1: Patient is admitted to 1A. Vital Signs Temperature 98.1 F 05/08/17 08:32 Pulse Rate 65 05/08/17 08:32 Respiratory Rate 18 05/08/17 08:32 Blood Pressure 131/86 05/08/17 08:32 O2 Sat by Pulse Oximetry 99 05/08/17 08:32 Temperature 98.4 F 05/09/17 20:47 Pulse Rate 72 05/09/17 20:47 Respiratory Rate 18 05/09/17 20:47 Blood Pressure 121/78 05/09/17 20:47 O2 Sat by Pulse Oximetry 99 05/08/17 08:32 Oxygen Delivery Oxygen Delivery Room Air Medical Decision Making - Lab Data Lab results reviewed: Yes I reviewed the patient's lab results. Result diagrams: 05/08/17 08:43 05/08/17 08:43 Lab Results 05/08/17 05/08/17 05/08/17 Range/Units 08:43 08:43 09:00 WBC 5.0 (4.3-11.1) K/mcL RBC 5.08 (4.19-5.50) M/mcL Hgb 15.5 (12.9-16.9) g/dL Hct 45.9 (37.5-50.1) % MCV 90.4 (83.0-100.0) fL MCH 30.5 (28.0-33.3) pg MCHC 33.8 (31.6-35.5) g/dL RDW 11.7 (11.5-14.5) % Plt Count 266 (140-400) K/mcL MPV 9.8 (9.4-12.4) fL Immature Gran % 0.2 (0-4) % Seg Neutrophils % 48.2 % Lymphocytes % 38.5 % Monocytes % 6.9 % Eosinophils % 4.6 % Basophils % 1.6 % Neutrophils # 2.4 (1.6-8.9) K/mcL Lymphocytes # 1.9 (0.6-4.6) K/mcL Monocytes # 0.3 (0.0-1.3) K/mcL Eosinophils # 0.2 (0.0-0.6) K/mcL Basophils # 0.1 (0.0-0.2) K/mcL Immature Plt Fraction 3.2 (1.1-6.1) % Sodium 139 (136-145) mEq/L Potassium 4.5 (3.5-4.5) mEq/L Chloride 108 (98-109) mEq/L Carbon Dioxide 23 (19-29) mEq/L BUN 11 (8-26) mg/dL Creatinine 1.15 (0.72-1.25) mg/dL Est GFR ( Amer) > 60 (> 60) Est GFR (Non-Af Amer) > 60 (> 60) BUN/Creatinine Ratio 10 (6-26) Glucose 118 H (70-99) mg/dL Calculated Osmolality 288 (280-300) Calcium 9.7 (8.6-10.8) mg/dL Urine Color Yellow (Yellow) Urine Clarity Clear (Clear) Urine pH 6.0 (5.0-8.0) pH Units Ur Specific [place] 1.010 (1.010-1.025) Urine Protein Negative (Neg-Trace) mg/dL Urine Glucose (UA) Normal (Normal) mg/dL Urine Ketones Negative (Negative) mg/dL Urine Blood Negative (Negative) Urine Nitrite Negative (Negative) Urine Bilirubin Negative (Negative) Urine Urobilinogen Normal (Normal) mg/dL Ur Leukocyte Esterase Negative (Negative) Salicylates < 5.0 L (15-30) mg/dL Urine Opiates Screen (Hjecqi=119) ng/mL Acetaminophen < 1.0 L (10-30) mcg/mL Ur Barbiturates Screen (Vytril=491) ng/mL Ur Phencyclidine Scrn (Cutoff=25) ng/mL Ur Amphetamines Screen (Rsrvez=8078) ng/mL U Benzodiazepines Scrn (Heaabu=269) ng/mL Urine Cocaine Screen (Cutoff= 300) ng/mL U Marijuana (THC) Screen (Cutoff = 50) ng/mL Ethyl Alcohol < 10 (0-10) mg/dL 05/08/17 Range/Units 09:00 WBC (4.3-11.1) K/mcL RBC (4.19-5.50) M/mcL Hgb (12.9-16.9) g/dL Hct (37.5-50.1) % MCV (83.0-100.0) fL MCH (28.0-33.3) pg MCHC (31.6-35.5) g/dL RDW (11.5-14.5) % Plt Count (140-400) K/mcL MPV (9.4-12.4) fL Immature Gran % (0-4) % Seg Neutrophils % % Lymphocytes % % Monocytes % % Eosinophils % % Basophils % % Neutrophils # (1.6-8.9) K/mcL Lymphocytes # (0.6-4.6) K/mcL Monocytes # (0.0-1.3) K/mcL Eosinophils # (0.0-0.6) K/mcL Basophils # (0.0-0.2) K/mcL Immature Plt Fraction (1.1-6.1) % Sodium (136-145) mEq/L Potassium (3.5-4.5) mEq/L Chloride (98-109) mEq/L Carbon Dioxide (19-29) mEq/L BUN (8-26) mg/dL Creatinine (0.72-1.25) mg/dL Est GFR ( Amer) (> 60) Est GFR (Non-Af Amer) (> 60) BUN/Creatinine Ratio (6-26) Glucose (70-99) mg/dL Calculated Osmolality (280-300) Calcium (8.6-10.8) mg/dL Urine Color (Yellow) Urine Clarity (Clear) Urine pH (5.0-8.0) pH Units Ur Specific [place] (1.010-1.025) Urine Protein (Neg-Trace) mg/dL Urine Glucose (UA) (Normal) mg/dL Urine Ketones (Negative) mg/dL Urine Blood (Negative) Urine Nitrite (Negative) Urine Bilirubin (Negative) Urine Urobilinogen (Normal) mg/dL Ur Leukocyte Esterase (Negative) Salicylates (15-30) mg/dL Urine Opiates Screen Negative (Uanbcc=117) ng/mL Acetaminophen (10-30) mcg/mL Ur Barbiturates Screen Negative (Pcgpyz=024) ng/mL Ur Phencyclidine Scrn Negative (Cutoff=25) ng/mL Ur Amphetamines Screen Negative (Qzokbc=9852) ng/mL U Benzodiazepines Scrn Negative (Pkdahb=392) ng/mL Urine Cocaine Screen Negative (Cutoff= 300) ng/mL U Marijuana (THC) Screen Positive H (Cutoff = 50) ng/mL Ethyl Alcohol (0-10) mg/dL Attestation Statement - Attestation Attestation: I, Jorge Pimentel, examined this patient and my medical decision-making was reviewed with the IN PROCESS INSPECTOR/PA/Advanced Practice Nurse/Resident Physician. I agree with the documented findings, disposition and treatment plan as described except to the extent set forth below. 51-year-old male presents for concerns of suicidal ideation. Patient has had suicidal ideation intermittently over the past year. He states that he is going to get a gun to shoot himself. States that he has access to guns in his house. Patient was recently seen by behavioral health for similar situation. Patient denies homicidal ideation. Denies visual or auditory hallucinations. Patient is not taking his medications for psychiatric illness. Patient will be medically cleared and will be seen by behavioral health. Behavioral health saw the patient and will admit the patient to [facility].
[2017-05-08] MEDS ORDERED: clonazePAM 1 MG TABLET PO STA (11:07)
[2017-05-08] MEDS ORDERED: clonazePAM 0.5 MG TABLET PO STA (11:08)
[2017-05-08] MEDS ORDERED: MOM Conc 10 ML UD.LIQ PO PRN (17:57)
[2017-05-08] MEDS ORDERED: Haloperidol Lactate 5 MG/ML VIAL IM PRN (17:57)
[2017-05-08] MEDS ORDERED: Ibuprofen 400 MG TABLET PO PRN (17:57)
[2017-05-08] MEDS ORDERED: *HR* LORazepam 1 MG TABLET PO PRN (17:57)
[2017-05-08] MEDS ORDERED: *HR* LORazepam 2 MG/ML VIAL IM PRN (17:57)
[2017-05-08] MEDS ORDERED: traZODone 50 MG TABLET PO PRN ×2 (17:57→18:01)
[2017-05-08] MEDS ORDERED: Mag Hydrox/Al Hydrox/Simeth 30 ML UDC PO PRN (17:57)
[2017-05-08] MEDS ORDERED: Acetaminophen 325 MG TABLET PO PRN (17:57)
[2017-05-08] MEDS ORDERED: Gabapentin 300 MG CAPSULE PO PRN (18:01)
[2017-05-08] MEDS: Mirtazapine 15 MG TABLET PO SCH (20:31)
[2017-05-08] MEDS: clonazePAM 1 MG TABLET PO PRN (20:32)
[2017-05-09] MEDS: clonazePAM 1 MG TABLET PO PRN ×3 (12:16→20:38)
--- NOTE | 2017-05-09 12:49 | Psychiatry History & Physical ---
Date of Encounter: 05/09/17 Time of Encounter: 12:55 History of Present Illness Patient Stated Chief Complaint: "I do not think life is worth living." Medicare Admission Attestation: For traditional Medicare patients the provided hospital inpatient services are reasonable and necessary and in the case of services not specified as inpatient -only under 42 CFR 419.22 (n), that they are appropriately provided as inpatient services in accordance 42 CFR 412.3. For Critical Access Hospital the patient may reasonably be expected to be discharged or transferred to a hospital within 96 hours after admission to the Critical Access Hospital. Admitted From: Emergency Dept Plans for Post Hospital Care: Home History of Present Illness: Mr. Saxena is a 51 year old male with longstanding history of depression and suicidal ideation. He presented to the hospital with increasing suicidal ideations after recent discharge on April 30. Patient states that he just told the previous provider when he wanted to hear and got out of the hospital before he was ready to leave. Patient states that the trazodone may be causing nightmares and he stopped taking it. He also stopped taking the Remeron although after thinking about this patient states that medication management actually been helpful. He has also been on multiple antidepressants in the past including Celexa, Lexapro, Prozac, Zoloft, Effexor, Wellbutrin but cannot remember any of the side effects. "I stopped taking them because they obviously did not work." Patient states that his life is not worth living and he does not have anybody left in his life because his daughter refused to allow him to come to the wedding. According to Luciano, his daughter has witnessed multiple arguments between him and his ex- and this led to his daughter refusing to allow him to participate in her life. He now feels like he has nothing left to live for. He was in [place] for a while but then came back here. "There is nothing left for me. I have access to firearms and I think I would shoot myself." The only thing stopping him at this point is the fact that his daughter is wedding would be recommended if he killed himself. " I do not want aggressive anything for her." He denies auditory or visual hallucinations today. He does have some difficulty sleeping. He does report mood swings and irritability. He is interested in trying medications but does not think it will help. Past Med Surg Social Fam HX - Past Medical History Medical history: arthritis, GERD, seizures - Past Psychiatric History Psychiatric history: Reports: depression, prior suicide attempt, previous psychiatric hospitalization Past psychiatric history details: Patient does have a past history of suicide attempts of O.D. and cut wrists in past. Noncompliant with with treatment and multiple admissions in the past. Family psychiatric history: Yes Family Psychiatric History Details: Father had substance abuse issues. Family History of Suicide: None - Social History Smoking Status: Former smoker Smokeless Tobacco Status: No Alcohol use: none Drug use: marijuana Additional substance use detail: Patient has history of cocaine and opiate abuse in the past. Occupational status: unemployed Current living situation: Home - Family History Mother Adopted: No Family Member Ethnicity: Non- Living Status: Hx Family Endocrine Disorder: Yes (Diabetes) Hx Family Psychosocial Disorders: Yes (Mental health issues and IV drug abuse) Father Adopted: No Family Member Ethnicity: Non- Living Status: Unknown Hx Family Psychosocial Disorders: Yes Medications & Allergies Omeprazole [PriLOSEC] 40 mg PO DAILY 30 Days 02/04/16 [Rx] Mirtazapine [Remeron] 30 mg PO HS #30 tablet 04/30/17 [Rx] clonazePAM [Klonopin] 1 mg PO BID PRN #60 tablet 04/30/17 [Rx] traZODone [TraZODone] 50 mg PO HS PRN #30 tablet 04/30/17 [Rx] Gabapentin [Neurontin] 300 mg PO TID PRN 05/08/17 [History] Allergies Penicillins Allergy (Verified 12/29/16 20:43) Anaphylaxis Review of Systems Constitutional: Denies: fever, chills, weakness, weight change Eyes: Denies: eye pain, vision change Ears, Nose, Throat: Denies: ear pain, throat pain, dental pain, hearing loss, congestion Cardiovascular: Denies: chest pain, palpitations, dyspnea on exertion Respiratory: Denies: cough, dyspnea, wheezes Gastrointestinal: Denies: abdominal pain, nausea, vomiting, diarrhea, constipation Genitourinary male: Denies: urgency, dysuria, frequency, genital lesions Genitourinary female: Denies: urgency, dysuria, frequency, abnormal menses, dyspareunia Musculoskeletal: Reports: back pain, joint pain Integumentary: Denies: rash, lesions, pruritus Neurological: Denies: headache, weakness, numbness, memory loss Psychiatric: Reports: depression, anxiety, abnormal sleep pattern, suicidal ideation, anhedonia, difficulty concentrating, hopelessness, irritability, mood swings. Denies: auditory hallucinations, visual hallucinations Endocrine: Denies: fatigue, heat or cold intolerance Hematologic/Lymphatic: Denies: easy bruising, lymphadenopathy Allergic/Immunologic: Denies: urticaria, itchy eyes Mental Status Exam Patient orientation: Yes Person, Yes Time, Yes Place Level of alertness: Alert Patient appearance: Appropriate Behavior: cooperative Psychomotor activity: Slowed Eye contact: Diverts Contact Mood description: Angry, Depressed, Irritable Affect description: congruent with mood Speech pattern: Normal rate, Normal rhythm, Normal tone Speech volume: Normal Thought process: Linear Thought content: Yes Suicidal ideation Perceptual disturbances: No Auditory hallucinations, No Visual hallucinations Attention span: Capable of Focused Attention Memory description: Grossly Intact Patient reliability: Questionable Historian Intelligence estimate: Average Judgment: Limited Insight: Minimal Exam - HEENT Head exam IM: Present: atraumatic Eye exam IM: Present: EOMI - Neurological Neurological exam IM: Present: CN II-XII intact - Skin Skin exam IM: Present: dry, warm Results - Vital Signs Vital signs: Temp Pulse Resp BP Pulse Ox 97.1 F L 72 16 122/90 99 05/09/17 09:00 05/09/17 09:00 05/09/17 09:00 05/09/17 09:00 05/08/17 08:32 - Labs Labs: Laboratory Last Values WBC 5.0 K/mcL (4.3-11.1) 05/08/17 08:43 RBC 5.08 M/mcL (4.19-5.50) 05/08/17 08:43 Hgb 15.5 g/dL (12.9-16.9) 05/08/17 08:43 Hct 45.9 % (37.5-50.1) 05/08/17 08:43 MCV 90.4 fL (83.0-100.0) 05/08/17 08:43 MCH 30.5 pg (28.0-33.3) 05/08/17 08:43 MCHC 33.8 g/dL (31.6-35.5) 05/08/17 08:43 RDW 11.7 % (11.5-14.5) 05/08/17 08:43 Plt Count 266 K/mcL (140-400) 05/08/17 08:43 MPV 9.8 fL (9.4-12.4) 05/08/17 08:43 Immature Gran % 0.2 % (0-4) 05/08/17 08:43 Seg Neutrophils % 48.2 % 05/08/17 08:43 Lymphocytes % 38.5 % 05/08/17 08:43 Monocytes % 6.9 % 05/08/17 08:43 Eosinophils % 4.6 % 05/08/17 08:43 Basophils % 1.6 % 05/08/17 08:43 Neutrophils # 2.4 K/mcL (1.6-8.9) 05/08/17 08:43 Lymphocytes # 1.9 K/mcL (0.6-4.6) 05/08/17 08:43 Monocytes # 0.3 K/mcL (0.0-1.3) 05/08/17 08:43 Eosinophils # 0.2 K/mcL (0.0-0.6) 05/08/17 08:43 Basophils # 0.1 K/mcL (0.0-0.2) 05/08/17 08:43 Immature Plt Fraction 3.2 % (1.1-6.1) 05/08/17 08:43 Sodium 139 mEq/L (136-145) 05/08/17 08:43 Potassium 4.5 mEq/L (3.5-4.5) 05/08/17 08:43 Chloride 108 mEq/L (98-109) 05/08/17 08:43 Carbon Dioxide 23 mEq/L (19-29) 05/08/17 08:43 BUN 11 mg/dL (8-26) 05/08/17 08:43 Creatinine 1.15 mg/dL (0.72-1.25) 05/08/17 08:43 Est GFR ( Amer) > 60 (> 60) 05/08/17 08:43 Est GFR (Non-Af Amer) > 60 (> 60) 05/08/17 08:43 BUN/Creatinine Ratio 10 (6-26) 05/08/17 08:43 Glucose 118 mg/dL (70-99) H 05/08/17 08:43 Calculated Osmolality 288 (280-300) 05/08/17 08:43 Calcium 9.7 mg/dL (8.6-10.8) 05/08/17 08:43 Urine Color Yellow (Yellow) 05/08/17 09:00 Urine Clarity Clear (Clear) 05/08/17 09:00 Urine pH 6.0 pH Units (5.0-8.0) 05/08/17 09:00 Ur Specific [place] 1.010 (1.010-1.025) 05/08/17 09:00 Urine Protein Negative mg/dL (Neg-Trace) 05/08/17 09:00 Urine Glucose (UA) Normal mg/dL (Normal) 05/08/17 09:00 Urine Ketones Negative mg/dL (Negative) 05/08/17 09:00 Urine Blood Negative (Negative) 05/08/17 09:00 Urine Nitrite Negative (Negative) 05/08/17 09:00 Urine Bilirubin Negative (Negative) 05/08/17 09:00 Urine Urobilinogen Normal mg/dL (Normal) 05/08/17 09:00 Ur Leukocyte Esterase Negative (Negative) 05/08/17 09:00 Salicylates < 5.0 mg/dL (15-30) L 05/08/17 08:43 Urine Opiates Screen Negative ng/mL (Xppuwz=929) 05/08/17 09:00 Acetaminophen < 1.0 mcg/mL (10-30) L 05/08/17 08:43 Ur Barbiturates Screen Negative ng/mL (Zhcfdz=176) 05/08/17 09:00 Ur Phencyclidine Scrn Negative ng/mL (Cutoff=25) 05/08/17 09:00 Ur Amphetamines Screen Negative ng/mL (Njeadw=6129) 05/08/17 09:00 U Benzodiazepines Scrn Negative ng/mL (Ehiukl=473) 05/08/17 09:00 Urine Cocaine Screen Negative ng/mL (Cutoff= 300) 05/08/17 09:00 U Marijuana (THC) Screen Positive ng/mL (Cutoff = 50) H 05/08/17 09:00 Ethyl Alcohol < 10 mg/dL (0-10) 05/08/17 08:43 Assessment and Plan (1) Major depressive disorder, recurrent episode, severe Current visit: No Status: Acute Plan: Admit inpatient for safety and stabilization, Close observation, Suicide Precautions per unit protocol, Encourage participation in unit milieu, Group Therapy, Monitor sleep, Monitor appetite Additional Plan: Patient is actively suicidal with plan to shoot himself. We will admit to 1A for psychiatric stabilization. Restart Remeron and discontinue trazodone. We will start Seroquel 50 mg by mouth daily at bedtime for mood stabilization and sleep. Encourage positive coping strategies. Risks, benefits, side effects, alternatives discussed w/pt: Yes Patient agreeable to treatment: Yes Plans for Post Hospital Care: Home Estimated Length of Stay (Days): 3 Qualifiers: Psychotic features: without psychotic features Qualified Code(s): F33.2 - Major depressive disorder, recurrent severe without psychotic features (2) Anxiety Current visit: No Status: Acute Plan: Admit inpatient for safety and stabilization, Close observation Additional Plan: Encourage positive coping strategies to help with anxiety symptoms. Patient is positive for marijuana so we will taper her clonazepam slowly. Use non- habit forming drugs for anxiety. Risks, benefits, side effects, alternatives discussed w/pt: Yes Patient agreeable to treatment: Yes Estimated Length of Stay (Days): 3 (3) Personality disorder Current visit: Yes Status: Acute Plan: Admit inpatient for safety and stabilization, Close observation, Suicide Precautions per unit protocol, Encourage participation in unit milieu, Group Therapy, Monitor sleep, Monitor appetite Additional Plan: Encourage group attendance.
[2017-05-09] MEDS: Mirtazapine 15 MG TABLET PO SCH (20:37)
[2017-05-10] MEDS: clonazePAM 1 MG TABLET PO PRN ×3 (08:45→20:20)
--- NOTE | 2017-05-10 13:11 | Psychiatry Progress Note ---
Date of Encounter: 05/10/17 Time of Encounter: 11:00 Subjective Interval history: Patient is seen today for follow-up. He reports that he is angry because his clonazepam was decreased. We discussed that he should not be mixing marijuana with his clonazepam and that is why has been decreased with plans to taper. Patient voices that he has no plans to taper when he leaves the hospital. He continues to report suicidal ideations with vague plans that he does not want to discuss with this provider. Patient states he slept without nightmares last night but he did not sleep as well is when he was taking trazodone. Patient remains in his room and does not interact With peers and staff. Does not want to participate in group activities. Review of Systems Psychiatric: Reports: depression, anxiety, abnormal sleep pattern, suicidal ideation, anhedonia, difficulty concentrating, hopelessness, irritability, mood swings. Denies: auditory hallucinations, visual hallucinations Objective: Exam Patient orientation: Yes Person, Yes Time, Yes Place Level of alertness: Alert Patient appearance: Unkempt Behavior: agitated, uncooperative Psychomotor activity: Normal Eye contact: Minimal Contact Mood description: Angry, Anxious Affect description: congruent with mood Speech pattern: Normal rate, Normal rhythm, Normal tone Speech volume: Normal Thought process: Intact Thought content: Yes Suicidal ideation, No Homicidal ideation Perceptual disturbances: No Auditory hallucinations, No Visual hallucinations Judgment: Limited Insight: Minimal Results - Vital Signs Vital Signs: Temp Pulse Resp BP Pulse Ox 97.4 F L 72 16 116/80 99 05/10/17 08:47 05/10/17 08:47 05/10/17 08:47 05/10/17 08:47 05/08/17 08:32 Assessment and Plan (1) Major depressive disorder, recurrent episode, severe Current visit: No Status: Acute Plan: Continue hospitalization, Close observation, Suicide Precautions per unit protocol, Encourage participation in unit milieu, Group Therapy, Monitor sleep, Monitor appetite Additional Plan: We will increase Seroquel slightly and continue Remeron. Monitor for oversedation and other side effects. Encourage group attendance. Risks, benefits, side effects, alternatives discussed w/pt: Yes Patient agreeable to treatment: Yes Qualifiers: Psychotic features: without psychotic features Qualified Code(s): F33.2 - Major depressive disorder, recurrent severe without psychotic features (2) Anxiety Current visit: No Status: Acute Plan: Continue hospitalization, Close observation, Suicide Precautions per unit protocol, Encourage participation in unit milieu, Group Therapy, Monitor sleep, Monitor appetite Additional Plan: Continue lower dose of clonazepam for now. Risks, benefits, side effects, alternatives discussed w/pt: Yes Patient agreeable to treatment: Yes (3) Personality disorder Current visit: Yes Status: Acute Plan: Continue hospitalization, Close observation, Suicide Precautions per unit protocol, Encourage participation in unit milieu, Group Therapy, Monitor sleep, Monitor appetite Risks, benefits, side effects, alternatives discussed w/pt: Yes Patient agreeable to treatment: Yes Consult Discharge Plan - Plan Referrals: NO,PCP [Primary Care Provider] -
[2017-05-10] MEDS: Mirtazapine 15 MG TABLET PO SCH (20:21)
[2017-05-11] MEDS: clonazePAM 1 MG TABLET PO PRN ×2 (09:00→20:16)
--- NOTE | 2017-05-11 14:30 | Psychiatry Progress Note ---
Date of Encounter: 05/11/17 Time of Encounter: 13:00 Subjective Interval history: Patient is seen for follow-up with the nursing staff and socially responsible investment adviser. He is guarded and uncooperative. He continued to endorse suicidal ideation and not share any plans. He answered most question by saying I do not know. Review of Systems Psychiatric: Reports: depression, anxiety, abnormal sleep pattern, suicidal ideation, anhedonia, difficulty concentrating, hopelessness, irritability, mood swings. Denies: auditory hallucinations, visual hallucinations Objective: Exam Patient orientation: Yes Person, Yes Time, Yes Place Level of alertness: Alert Patient appearance: Appropriate, Well Groomed Behavior: cooperative, hostile, uncooperative, guarded Psychomotor activity: Normal Eye contact: Minimal Contact Mood description: Euthymic/stable, Labile, Irritable Affect description: congruent with mood, labile Speech pattern: Normal rate, Normal rhythm, Normal tone Speech volume: Normal Thought process: Linear, Goal Oriented, Thought Blocking Thought content: Yes Suicidal ideation, Yes Homicidal ideation, Yes Ideas of reference Perceptual disturbances: No Auditory hallucinations, No Visual hallucinations Judgment: Fair Insight: Partial Results - Vital Signs Vital Signs: Temp Pulse Resp BP Pulse Ox 97.0 F L 80 18 122/86 99 05/11/17 09:00 05/11/17 09:00 05/11/17 09:00 05/11/17 09:00 05/08/17 08:32 Assessment and Plan (1) Major depressive disorder, recurrent episode, severe Current visit: No Status: Acute Plan: Continue hospitalization, Close observation, Suicide Precautions per unit protocol, Encourage participation in unit milieu, Group Therapy, Monitor sleep, Monitor appetite Risks, benefits, side effects, alternatives discussed w/pt: Yes Patient agreeable to treatment: Yes Qualifiers: Psychotic features: without psychotic features Qualified Code(s): F33.2 - Major depressive disorder, recurrent severe without psychotic features Consult Discharge Plan - Plan Referrals: NO,PCP [Primary Care Provider] -
[2017-05-11] MEDS: Mirtazapine 15 MG TABLET PO SCH (20:16)
[2017-05-12] MEDS: clonazePAM 1 MG TABLET PO PRN ×2 (10:10→16:54)
--- NOTE | 2017-05-12 14:39 | Psychiatry Progress Note ---
Date of Encounter: 05/12/17 Time of Encounter: 12:00 Subjective Interval history: She was seen for follow-up with the nursing staff. Patient was asking to be discharged, he was angry and irritable, verbally abusive to his doctor and the staff. I attempted to redirect him and have a conversation about his treatment about his treatment goals, he would not anticipate, he was disrespectful and angry. Staff reported he was med seeking and upsets about. The reduced dose of Klonopin as ordered by Dr. Cordero and was communicated to me. Patient would not answer questions to the nursing staff and react in a hostile way. He is unable to determine his goals of treatment and how he can be helped. Review of Systems Psychiatric: Reports: depression, anxiety, abnormal sleep pattern, suicidal ideation, anhedonia, difficulty concentrating, hopelessness, irritability, mood swings. Denies: auditory hallucinations, visual hallucinations Objective: Exam Patient orientation: Yes Person, Yes Time, Yes Place Level of alertness: Alert Patient appearance: Appropriate, Well Groomed Behavior: agitated, hostile, uncooperative Psychomotor activity: Increased Eye contact: Minimal Contact Mood description: Angry, Irritable Affect description: congruent with mood, labile, dysphoric Speech pattern: Normal rate, Normal rhythm, Normal tone, Inappropriate to situation, Includes Profanity Speech volume: Normal Thought process: Logical, Linear, Goal Oriented, Evasive Thought content: Yes Suicidal ideation, No Homicidal ideation, No Overt delusions Perceptual disturbances: No Auditory hallucinations, No Visual hallucinations Judgment: Fair Insight: Partial Results - Vital Signs Vital Signs: Temp Pulse Resp BP Pulse Ox 97.1 F L 74 16 118/87 99 05/12/17 09:00 05/12/17 09:00 05/12/17 09:00 05/12/17 09:00 05/08/17 08:32 Assessment and Plan (1) Major depressive disorder, recurrent episode, severe Current visit: Yes Status: Acute Plan: Continue hospitalization, Close observation, Suicide Precautions per unit protocol, Encourage participation in unit milieu, Group Therapy, Monitor sleep, Monitor appetite Risks, benefits, side effects, alternatives discussed w/pt: Yes Patient agreeable to treatment: Yes Qualifiers: Psychotic features: without psychotic features Qualified Code(s): F33.2 - Major depressive disorder, recurrent severe without psychotic features Consult Discharge Plan - Plan Referrals: NO,PCP [Primary Care Provider] -
[2017-05-12] MEDS: Mirtazapine 15 MG TABLET PO SCH (20:20)
[2017-05-12] MEDS: hydrOXYzine pamoate 25 MG CAPSULE PO PRN (20:20)
--- NOTE | 2017-05-13 10:23 | Psychiatry Progress Note ---
Date of Encounter: 05/13/17 Time of Encounter: 09:30 Subjective Interval history: Patient was seen for follow-up with the treatment team. He was advised that his 72 hours hold expires today and he elected to sign in voluntarily to continue his treatment and stabilization. His medication was discussed and reviewed and adjustments will be made. He is trying to identify his symptoms of depression and anxiety and participated in his own treatment plan. He is still endorsing suicidal ideation and feeling unsafe to be discharged. He was encouraged to participate in activities and presents any questions related to his treatment through the team members. He expressed understanding of the discussion. Review of Systems Psychiatric: Reports: depression, anxiety, abnormal sleep pattern, suicidal ideation, anhedonia, difficulty concentrating, hopelessness, irritability, mood swings. Denies: auditory hallucinations, visual hallucinations Objective: Exam Patient orientation: Yes Person, Yes Time, Yes Place Level of alertness: Alert Patient appearance: Appropriate, Well Groomed Behavior: calm, cooperative, guarded Psychomotor activity: Normal Eye contact: Minimal Contact Mood description: Labile, Irritable Affect description: congruent with mood, labile, dysphoric Speech pattern: Normal rate, Normal rhythm, Normal tone Speech volume: Normal Thought process: Linear, Goal Oriented Thought content: Yes Suicidal ideation, Yes Homicidal ideation, No Overt delusions Perceptual disturbances: No Auditory hallucinations, No Visual hallucinations Judgment: Fair Insight: Partial Results - Vital Signs Vital Signs: Temp Pulse Resp BP Pulse Ox 97.3 F L 80 18 120/84 99 05/13/17 08:38 05/13/17 08:38 05/13/17 08:38 05/13/17 08:38 05/08/17 08:32 Assessment and Plan (1) Major depressive disorder, recurrent episode, severe Current visit: Yes Status: Acute Plan: Continue hospitalization, Close observation, Suicide Precautions per unit protocol, Encourage participation in unit milieu, Group Therapy, Monitor sleep, Monitor appetite Risks, benefits, side effects, alternatives discussed w/pt: Yes Patient agreeable to treatment: Yes Qualifiers: Psychotic features: without psychotic features Qualified Code(s): F33.2 - Major depressive disorder, recurrent severe without psychotic features Consult Discharge Plan - Plan Referrals: NO,PCP [Primary Care Provider] -
[2017-05-13] MEDS: hydrOXYzine pamoate 25 MG CAPSULE PO PRN (11:53)
[2017-05-13] MEDS: clonazePAM 1 MG TABLET PO SCH (20:37)
[2017-05-13] MEDS: Mirtazapine 15 MG TABLET PO SCH (20:37)
[2017-05-14] MEDS: clonazePAM 0.5 MG TABLET PO SCH (08:01)
--- NOTE | 2017-05-14 13:31 | Psychiatry Progress Note ---
Date of Encounter: 05/14/17 Time of Encounter: 13:00 Subjective Interval history: Patient she will follow-up with the nursing staff. Reports feeling the same. Nursing assessment she denied suicidal and homicidal ideation. He asked for Seroquel to be reduced to 50 mg at night and today here complaining of poor sleep and asked me to increase it back to 100 mg. He also reported having nightmares or bad dreams and interested in trying Minipress, yesterday "to start on its and he declined. Review of Systems Psychiatric: Reports: depression, anxiety, abnormal sleep pattern, suicidal ideation, anhedonia, difficulty concentrating, hopelessness, irritability, mood swings. Denies: auditory hallucinations, visual hallucinations Objective: Exam Patient orientation: Yes Person, Yes Time, Yes Place Level of alertness: Alert Patient appearance: Appropriate, Well Groomed Behavior: calm, cooperative, hostile, guarded Psychomotor activity: Normal Eye contact: Minimal Contact Mood description: Euthymic/stable, Irritable Affect description: congruent with mood, constricted Speech pattern: Normal rate, Normal rhythm, Normal tone Speech volume: Normal Thought process: Linear, Goal Oriented Thought content: No Suicidal ideation, No Homicidal ideation, No Overt delusions Perceptual disturbances: No Auditory hallucinations, Yes Visual hallucinations Judgment: Fair Insight: Partial Results - Vital Signs Vital Signs: Temp Pulse Resp BP Pulse Ox 97.4 F L 68 16 117/84 99 05/14/17 09:00 05/14/17 09:00 05/14/17 09:00 05/14/17 09:00 05/08/17 08:32 Assessment and Plan (1) Major depressive disorder, recurrent episode, severe Current visit: Yes Status: Acute Plan: Continue hospitalization, Close observation, Suicide Precautions per unit protocol, Encourage participation in unit milieu, Group Therapy, Monitor sleep, Monitor appetite Additional Plan: Will increase Seroquel to 100 mg at bedtime . We will order Minipress 2 mg at bedtime. Risks, benefits, side effects, alternatives discussed w/pt: Yes Patient agreeable to treatment: Yes Qualifiers: Psychotic features: without psychotic features Qualified Code(s): F33.2 - Major depressive disorder, recurrent severe without psychotic features Consult Discharge Plan - Plan Referrals: NO,PCP [Primary Care Provider] -
[2017-05-14] MEDS: Mirtazapine 15 MG TABLET PO SCH (20:41)
[2017-05-14] MEDS: clonazePAM 1 MG TABLET PO SCH (20:41)
[2017-05-15] MEDS: clonazePAM 0.5 MG TABLET PO SCH (09:15)
--- NOTE | 2017-05-15 14:31 | Psychiatry Progress Note ---
Date of Encounter: 05/15/17 Time of Encounter: 14:00 Subjective Interval history: Patient is seen for follow-up. He reports to continue to have nightmares , he started on Minipress yesterday. He was advised that medication may need to be taken. His full effect can be noticed. He denies suicidal ideation on nursing assessments and is not making any suicidal statement at this time. He is compliant with medication continued to be vague and guarded. Review of Systems Psychiatric: Reports: depression, anxiety, abnormal sleep pattern, suicidal ideation, anhedonia, difficulty concentrating, hopelessness, irritability, mood swings. Denies: auditory hallucinations, visual hallucinations Objective: Exam Patient orientation: Yes Person, Yes Time, Yes Place Level of alertness: Alert Patient appearance: Appropriate, Well Groomed Behavior: calm, cooperative Psychomotor activity: Normal Eye contact: Maintains Eye Contact Mood description: Euthymic/stable Affect description: congruent with mood, full range Speech pattern: Normal rate, Normal rhythm, Normal tone Speech volume: Normal Thought process: Linear, Goal Oriented Thought content: No Suicidal ideation, No Homicidal ideation, No Overt delusions Perceptual disturbances: No Auditory hallucinations, No Visual hallucinations Judgment: Fair Insight: Partial Results - Vital Signs Vital Signs: Temp Pulse Resp BP Pulse Ox 97.3 F L 71 18 115/82 99 05/15/17 09:00 05/15/17 09:00 05/15/17 09:00 05/15/17 09:00 05/08/17 08:32 Assessment and Plan (1) Major depressive disorder, recurrent episode, severe Current visit: Yes Status: Acute Plan: Continue hospitalization, Close observation, Suicide Precautions per unit protocol, Encourage participation in unit milieu, Group Therapy, Monitor sleep, Monitor appetite Risks, benefits, side effects, alternatives discussed w/pt: Yes Patient agreeable to treatment: Yes Qualifiers: Psychotic features: without psychotic features Qualified Code(s): F33.2 - Major depressive disorder, recurrent severe without psychotic features Consult Discharge Plan - Plan Referrals: NO,PCP [Primary Care Provider] -
[2017-05-15] MEDS: hydrOXYzine pamoate 25 MG CAPSULE PO PRN (17:14)
[2017-05-15] MEDS: clonazePAM 1 MG TABLET PO SCH (21:39)
[2017-05-15] MEDS: Mirtazapine 15 MG TABLET PO SCH (21:40)
[2017-05-16] MEDS: clonazePAM 0.5 MG TABLET PO SCH (08:45)
--- NOTE | 2017-05-16 13:41 | Psychiatry Progress Note ---
Date of Encounter: 05/16/17 Time of Encounter: 13:34 Subjective Interval history: Client reports continued SI with plan to shoot himself. Refusing to consider any medications other than an afternoon dose of Klonopin. Claims he took this medication three times a day prior to admission. This automobile and property underwriter pointed out that he was still admitted for SI even though he was taking Klonopin TID and that it may have been helping anxiety but that it clearly was not controlling his depression. Client reports this automobile and property underwriter is "close minded" for not giving him increased benzos because he knows benzos and THC are the only things that work for him. Reports he has been a medication "guinea pig" since he was a teenager and that he is unwilling to be a guinea pig anymore. Admitted he has not tried Celexa or Cymbalta but unwilling to take any antidepressants not already prescribed. Discussed the option of trying low dose Seroquel in the afternoon instead but client shot the idea down even though he reported benefit from the medication at night. Irritable. Med seeking. Reports if he is discharged he will go through with his plan to kill himself as he has noticed no improvement since admission. Not yet linked with services. Very antisocial in presentation but also high risk. Review of Systems Constitutional: Denies: fever, chills, weakness, weight change Eyes: Denies: eye pain, vision change Ears, Nose, Throat: Denies: ear pain, throat pain, dental pain, hearing loss, congestion Cardiovascular: Denies: chest pain, palpitations, dyspnea on exertion Gastrointestinal: Denies: abdominal pain, nausea, vomiting, diarrhea, constipation Musculoskeletal: Denies: joint swelling, joint pain Neurological: Denies: headache, weakness, numbness, memory loss Psychiatric: Reports: depression, anxiety, abnormal sleep pattern, suicidal ideation, anhedonia, difficulty concentrating, hopelessness, irritability, mood swings. Denies: auditory hallucinations, visual hallucinations Objective: Exam Patient orientation: Yes Person, Yes Time, Yes Place Level of alertness: Alert Patient appearance: Appropriate, Well Groomed Behavior: calm, uncooperative Psychomotor activity: Normal Eye contact: Maintains Eye Contact Mood description: Depressed, Anxious Affect description: blunted Speech pattern: Normal rate, Normal rhythm, Normal tone Speech volume: Normal Thought process: Linear Thought content: Yes Suicidal ideation Perceptual disturbances: No Auditory hallucinations, No Visual hallucinations Judgment: Limited Insight: Minimal Results - Vital Signs Vital Signs: Temp Pulse Resp BP Pulse Ox 97.4 F L 77 16 108/81 99 05/16/17 09:00 05/16/17 09:00 05/16/17 09:00 05/16/17 09:00 05/08/17 08:32 Assessment and Plan (1) Suicidal ideation Current visit: No Status: Acute Plan: Continue hospitalization, Close observation, Suicide Precautions per unit protocol, Encourage participation in unit milieu, Group Therapy, Monitor sleep, Monitor appetite, Secure weapons Risks, benefits, side effects, alternatives discussed w/pt: Yes Patient agreeable to treatment: Yes Consult Discharge Plan - Plan Referrals: NO,PCP [Primary Care Provider] -
[2017-05-16] MEDS: Mirtazapine 15 MG TABLET PO SCH (21:13)
[2017-05-16] MEDS: clonazePAM 1 MG TABLET PO SCH (21:13)
[2017-05-17 08:36] VITALS: BP 124/82
[2017-05-17] MEDS: clonazePAM 0.5 MG TABLET PO SCH (09:21)
--- NOTE | 2017-05-17 10:06 | Discharge Summary ---
Date of Encounter: 05/17/17 Time of Encounter: 09:59 Diagnosis - Discharge Diagnosis (1) Suicidal ideation Status: Acute Medications - Discharge Medications Prescriptions: clonazePAM [Klonopin] 0.5 mg PO DAILY #30 tablet Prazosin [Minipress] 2 mg PO HS #30 capsule Quetiapine Fumarate [Seroquel] 50 mg PO Q6H PRN #30 tablet PRN Reason: Agitation Quetiapine Fumarate [Seroquel] 100 mg PO HS #30 tablet Omeprazole [PriLOSEC] 40 mg PO DAILY 30 Days 02/04/16 [Rx] Mirtazapine [Remeron] 30 mg PO HS #30 tablet 04/30/17 [Rx] traZODone [TraZODone] 50 mg PO HS PRN #30 tablet 04/30/17 [Rx] Gabapentin [Neurontin] 300 mg PO TID PRN 05/08/17 [History] Prazosin [Minipress] 2 mg PO HS #30 capsule 05/17/17 [Rx] Quetiapine Fumarate [Seroquel] 50 mg PO Q6H PRN #30 tablet 05/17/17 [Rx] Quetiapine Fumarate [Seroquel] 100 mg PO HS #30 tablet 05/17/17 [Rx] clonazePAM [Klonopin] 0.5 mg PO DAILY #30 tablet 05/17/17 [Rx] clonazePAM [Klonopin] 1 mg PO HS tablet 05/17/17 [Rx] Allergies Penicillins Allergy (Verified 12/29/16 20:43) Anaphylaxis Provider Date of admission: 05/08/17 17:50 Primary care physician: PCP RADHA Discharging clinician: Yesica Beth Assessment and Plan - Patient/Caregiver Discharge Instructions Activity: resume usual activities as tolerated Diet: regular diet - Follow up Plan Follow up with: NO,PCP [Primary Care Provider] - Functional capacity at discharge: independent ambulation Overall status at discharge: Stable Disposition: Home, Self-Care Hospital Course Hospital course: Mr. Saxena is a 51 year old male who was admitted secondary to SI. Medications were adjusted-mostly to his dissatisfaction as his overall Klonopin dose was decreased. However, the day prior to discharge he was given low dose Seroquel as a prn during the daytime (when he had previously been seeking Klonopin) and he felt this helped with his anxiety. He reported his biggest stressor was alienation from his daughter. She was the day prior to his discharge and he was not invited to the wedding. However, he made the decision to reach out to her and he reported they had a good conversation. He was hopeful about the relationship and felt that reconnecting with her allowed him to see a more positive future. He made plans to reside in a friends home and indicated he may ultimately move to [place]. However, he was willing to sign a MARTIN to be linked with psych services in his friend's home county so that he can continue on medications until he decides where he wants to stay permanently. The social security assessor has his cell phone number and will contact him with follow-up appointments when she returns to the unit tomorrow. Client has his own transportation. He seemed brighter on the day of discharge and reported no longer experiencing suicidal thoughts secondary to reopening a line of communication with his daughter. Future oriented at time of discharge. - Time Spent with Patient Total time spent providing and/or coordinating discharge services: Quality - Multiple Antipsychotics Patient discharged on 2 or more antipsychotic medications: No Procedures - Procedures Procedures: Medication Management, Crisis Stabilization, Supportive Therapy, Group Therapy Mental Status Exam - Mental Status Exam Patient orientation: Yes Person, Yes Time, Yes Place Level of alertness: Alert Patient appearance: Appropriate, Well Groomed Behavior: calm Psychomotor activity: Normal Eye contact: Maintains Eye Contact Mood description: Euthymic/stable Affect description: congruent with mood Speech pattern: Normal rate, Normal rhythm, Normal tone Speech Volume: Normal Thought process: Linear, Goal Oriented Thought Content: No Suicidal ideation, No Homicidal ideation, No Overt delusions Perceptual Disturbances: No Auditory hallucinations, No Visual hallucinations Judgment: Limited Insight: Partial
== END 2017-05-17 10:45 | disposition home or self-care (01) | DRG 751 ==
LOC: EMEROO 08:31 → 1ANU 17:50 → SUATTDRO 17:50 → 1ANU 18:11
PROVIDERS: ADMIT Psychiatry & Neurology Psychiatry; ATTEND Psychiatry & Neurology Psychiatry